=== PATIENT | female | born 1950 | race Caucasian/White ===

== ENCOUNTER 2020-06-24 12:38 | Outpatient (CLI) | payer MEDICARE, SELFPAY ==
--- NOTE | ~2020-06-24 | MM_ITS ---
EXAMINATION: MM screening [facility] BI w etta HISTORY: Screening TECHNIQUE: Craniocaudal and mediolateral oblique 3-D tomosynthesis images were obtained and synthetic 2-D images were generated. CAD analysis was submitted and interpreted. COMPARISON: Comparison to multiple prior studies sequentially, with oldest reviewed study dated 07/31. BREAST PARENCHYMAL COMPOSITION: There are scattered areas of fibroglandular density. FINDINGS: There is no evidence of suspicious mass, calcification, or architectural distortion to sugg est malignancy in either breast. There has been no suspicious interval change. IMPRESSION: 1. No mammographic evidence of malignancy. 2. Recommend routine screening mammography in one year. BI-RADS Category 1: Negative Reviewed, dictated and finalized at location D. 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
== END 2020-06-24 12:39 | disposition home or self-care (01) ==
LOC: ANHIMG 12:42
PROVIDERS: PCP Family Medicine; Visit Provider Obstetrics & Gynecology
DX: Z12.31 Encounter for screening mammogram for malignant neoplasm of breast (principal)
CPT/HCPCS: 77063; 77067

== ENCOUNTER → 2020-12-25 10:35 | Outpatient (CLI) | payer MEDICARE, SELFPAY ==
--- NOTE | ~2020-12-25 | XR_ITS ---
XR lumbar spine 2-3V 12/25/2020 10:55 Indication: Low back Procedure: 3 views lumbar spine Comparison: No prior studies for comparison. Findings: There is disc narrowing at all lumbar levels. There is grade 1 degenerative spondylolisthes is at L4-5. There is moderate lumbar facet hypertrophy at L4-5 and L5-S1. No fracture or traumatic ma lalignment. There is atherosclerosis. Sacral foramen are symmetric. Impression: 1: Moderate lumbar spondylosis. Reviewed, dictated and finalized at location B. Impression: 1: Moderate lumbar spondylosis.
== END ==
PROVIDERS: PCP Nurse Practitioner Family; Visit Provider Nurse Practitioner Family
DX: M47.896 Other spondylosis, lumbar region (principal)
CPT/HCPCS: 72100

== ENCOUNTER 2021-10-14 14:42 | Outpatient (CLI) | payer MEDICARE, SELFPAY ==
--- NOTE | ~2021-10-14 | MM_ITS ---
EXAMINATION: MM screening [facility] BI w etta HISTORY: Screening mammogram TECHNIQUE: Craniocaudal and mediolateral oblique 3-D tomosynthesis images were obtained and synthetic 2-D images were generated. CAD analysis was submitted and interpreted. COMPARISON: 06/24/2020, 06/03/2019, 04/16/2018 BREAST PARENCHYMAL COMPOSITION: The breasts are almost entirely fatty. FINDINGS: There is no suspicious mass, calcification, or architectural distortion to suggest malignan cy in either breast. There has been no suspicious interval change. IMPRESSION: 1. No mammographic evidence of malignancy. 2. Recommend routine screening mammography in one year. BI-RADS Category 1: Negative Reviewed, dictated and finalized at location A.
== END 2021-10-14 14:43 | disposition home or self-care (01) ==
LOC: ANHIMG 14:43
PROVIDERS: PCP Family Medicine; Visit Provider Obstetrics & Gynecology
DX: Z12.31 Encounter for screening mammogram for malignant neoplasm of breast (principal)
CPT/HCPCS: 77063; 77067

== ENCOUNTER → 2022-04-08 13:45 | Outpatient (CLI) | payer MEDICARE, SELFPAY ==
--- NOTE | ~2022-04-08 | XR_ITS ---
XR chest 2V DATE: 04/08/2022 14:20 INDICATION: Cough TECHNIQUE: 2 views COMPARISON: 10/09/2015 PA and lateral chest FINDINGS: Mild cardiomegaly. No pulmonary infiltrate or consolidation, pleural effusion or pulmonary vascular congestion or pneumothorax is detected. Diffuse osteopenia. Degenerative spurring of the thoracic spine. IMPRESSION: Cardiomegaly; no active pulmonary disease Reviewed, dictated and finalized at location B.
--- NOTE | ~2022-04-08 | XR_ITS ---
XR lumbar spine 2-3V DATE: 04/08/2022 14:20 INDICATION: Back pain TECHNIQUE: Standing AP, lateral and coned lateral lumbosacral views COMPARISON: 12/25/2020 lumbar spine FINDINGS: There is osteopenia. There is severe degenerative disc disease at L1-2, L2-3 and moderately prominent degenerative disc di sease at L3-4. There is degenerative change at the apophyseal joints with associated grade 1 anterolisthesis at L4-5 . The lumbar pedicles are intact. No fracture or bone destruction is evident. The sacroiliac joints are intact. Abdominal aortic calcification. Mild fusiform infrarenal abdominal aortic aneurysm is suggested. IMPRESSION: Osteopenia Multilevel degenerative disc disease, most prominent at L1-2 and L2-3 Degenerative change of the apophyseal joints with minimal grade 1 anterolisthesis at L4-5 Suggestion of mild fusiform infrarenal abdominal aortic aneurysm Reviewed, dictated and finalized at location B. IMPRESSION: Osteopenia Multilevel degenerative disc disease, most prominent at L1-2 and L2-3 Degenerative change of the apophyseal joints with minimal grade 1 anterolisthes is at L4-5 Suggestion of mild fusiform infrarenal abdominal aortic aneurysm
== END ==
PROVIDERS: PCP Family Medicine; Visit Provider Nurse Practitioner Family
DX: R05.9 Cough, unspecified (principal); M85.88 Other specified disorders of bone density and structure, other site; M51.36 Other intervertebral disc degeneration, lumbar region; I71.4 Abdominal aortic aneurysm, without rupture; I51.7 Cardiomegaly
CPT/HCPCS: 71046; 72100

== ENCOUNTER 2022-05-18 10:15 | Outpatient (CLI) | payer MEDICARE, SELFPAY ==
--- NOTE | ~2022-05-18 | US_ITS ---
EXAMINATION: US aorta DATE: 05/18/2022 10:57 INDICATION: Abdominal aortic aneurysm without rupture TECHNIQUE: Grayscale, color Doppler, and pulsed Doppler images of the aorta and common iliac arteries were obtained. COMPARISON: None. FINDINGS: The proximal aorta measures 1.9 cm. The mid aorta measures 1.7 cm. The distal aorta measures 3.1 cm. The right common iliac artery measures 1.0 cm. The left common iliac artery measures 1.0 cm. IMPRESSION: 1. Mildly ectatic distal abdominal aorta which measures up to 3.1 cm in maximal diameter. Reviewed, dictated and finalized at location B.
[2022-05-18 11:28] LABS: Anion Gap 13 mmol/L (8-16); Blood Urea Nitrogen 18 mg/dL (7-17); Carbon Dioxide 30 mmol/L (22-30); Chloride 99 mmol/L (98-107); Estimated Glomerular Filt Rate > 60; Glucose 170 mg/dL (65-110); Potassium 4.1 mmol/L (3.4-5.0); Sodium 142 mmol/L (137-145)
== END 2022-05-18 10:16 | disposition home or self-care (01) ==
PROVIDERS: PCP Family Medicine; Visit Provider Internal Medicine Cardiovascular Disease
DX: I71.43 Infrarenal abdominal aortic aneurysm, without rupture (principal); I10 Essential (primary) hypertension
CPT/HCPCS: 36415; 76775; 80048

== ENCOUNTER 2022-09-14 08:38 | Outpatient (CLI) | payer MEDICARE, SELFPAY ==
--- NOTE | ~2022-09-14 | CT_ITS ---
CT of the Abdomen and Pelvis: Indication: Abdominal pain Technique: 2.5 mm axial scans were obtained through the abdomen and pelvis following intravenous adm inistration of 100 cc of Omnipaque 350. Dose reduction technique was used on this scan by utilizing a utomated exposure control and iterative reconstruction technique. The dose-length product (DLP) was 1 369.95 mGy-cm. COMPARISON: 08/11/2013 Findings: Scans through the lung bases are unremarkable. The liver, spleen, pancreas, gallbladder, adrenals and kidneys are within normal limits. There is mil d aneurysmal dilatation of distal abdominal aorta to 3 cm in maximum diameter. There are atherosclero tic calcifications of the aorta. No lymphadenopathy. No bowel obstruction or bowel wall thickening. There is no evidence to suggest acute appendicitis. Fa t-containing umbilical hernia noted. Images through the pelvis were performed. Urinary bladder unremarkable. No adnexal mass evident. No a scites. Impression: Fat-containing umbilical hernia. Aneurysmal dilatation of the distal abdominal aorta to 3 cm. Reviewed, dictated and finalized at [facility]. 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 Aneurysmal dilatation of the distal abdominal aorta to 3 cm.
[2022-09-14 09:06] LABS: Estimated Glomerular Filt Rate 55
== END 2022-09-14 08:39 | disposition home or self-care (01) ==
PROVIDERS: PCP Family Medicine; Visit Provider Nurse Practitioner Family
DX: R10.9 Unspecified abdominal pain (principal); K42.9 Umbilical hernia without obstruction or gangrene
CPT/HCPCS: 74177; Q9967

== ENCOUNTER 2023-03-07 12:42 | Outpatient (CLI) | payer MEDICARE, SELFPAY ==
--- NOTE | ~2023-03-07 | XR_ITS ---
XR abdomen/kub 1V 03/07/2023 13:11 INDICATION: Right lower quadrant pain TECHNIQUE: KUB COMPARISON: 08/12/2013 FINDINGS: Bowel gas pattern is normal. Moderate colonic fecal loading. There is no evidence of free a ir, mass, organomegaly, ascites or obstruction. No abnormal calculi are seen. The bones appear inta ct. IMPRESSION: 1: No acute abdominal abnormality identified. Reviewed, dictated and finalized at location L.
[2023-03-07 14:27] LABS: Hematocrit 50.7 % (37.0-47.0); Hemoglobin 15.8 g/dL (12.0-15.0); Immature Platelet Fraction Pct 19.2 % (0.9-11.2); Mean Corpuscular HGB Conc 31.2 g/dl (32-36); Mean Corpuscular Hemoglobin 29.8 pg (26-34); Mean Corpuscular Volume 95.7 fl (80-100); Mean Platelet Volume 13.5 fl (7.4-10.4); Platelet Count Result 193 k/mm3 (150-375)
[2023-03-07 14:37] LABS: Alanine Aminotransferase 18 U/L (6-35); Albumin Level 4.6 g/dL (3.5-5.1); Alkaline Phosphatase 66 U/L (38-126); Anion Gap 6 mmol/L (8-16); Aspartate Amino Transferase 29 U/L (14-36); Bilirubin,Total 0.8 mg/dL (0.2-1.3); Blood Urea Nitrogen 19 mg/dL (7-17); Calcium 10.7 mg/dL (8.4-10.2); Carbon Dioxide 28 mmol/L (22-30); Chloride 102 mmol/L (98-107); Cholesterol 151 mg/dL (0-200); Estimated Glomerular Filt Rate > 60; Glucose 151 mg/dL (65-110); HDL Direct 47 mg/dL; Potassium 4.4 mmol/L (3.4-5.0); Sodium 136 mmol/L (137-145); Triglycerides 140 mg/dL (<150)
[2023-03-07 14:48] LABS: LDL Cholesterol Direct 77 mg/dL
[2023-03-07 18:01] LABS: Vitamin D 25 Hydroxy 58.2 ng/mL
== END 2023-03-07 12:43 | disposition home or self-care (01) ==
PROVIDERS: PCP Family Medicine; Visit Provider Nurse Practitioner Family
DX: R10.9 Unspecified abdominal pain (principal); R14.0 Abdominal distension (gaseous); Z87.19 Personal history of other diseases of the digestive system; E55.9 Vitamin D deficiency, unspecified; E66.01 Morbid (severe) obesity due to excess calories; I10 Essential (primary) hypertension; E78.5 Hyperlipidemia, unspecified
CPT/HCPCS: 36415; 74018; 80053; 80061; 82306; 84443; 85027; 85055

== ENCOUNTER 2023-03-13 01:31 | Day surgery (SDC) | payer MEDICARE, SELFPAY ==
[2023-02-15 14:18] VITALS: BMI 39.6
--- NOTE | 2023-03-06 15:43 | PC.NURSE ---
SPOKE WITH PT. DENIES ANY CHANGES IN HEALTH SINCE INTERVIEWED 02/15/2023. REVIEWED INSTRUCTIONS, DATE AND TIMES/
[2023-03-13 11:35] VITALS: BP 144/93; PULSE 86; RESP 20; TEMP 36.4; O2SAT 97
[2023-03-13] MEDS: LACTATED RINGERS 1,000 ML 150 ML IV CONT (11:51)
--- NOTE | 2023-03-13 12:00 | PM.HPGS ---
History of Present Illness History of Present Illness Consent: Risks, benefits, and alternatives have been discussed and questions answered. Patient agrees to proceed with procedure. Chief complaint: GERD,Abdominal pain Narrative: Tammy Lynn is a 73 year old female with intermittent abdominal pain and bloating, CT scan showed umbilical hernia and 3 cm Ao aneurysm. Last colonoscopy about 8 years ago Review of Systems Constitutional: Constitutional: Denies headache(s) and Denies weakness Eyes: Eyes: Denies blurry vision ENT: Reports Normal hearing present, Denies headache(s) and Denies neck pain Cardiovascular: Cardiovascular: Denies chest pain and Denies dyspnea Respiratory: Respiratory: Denies dyspnea Gastrointestinal: Gastrointestinal: Reports no additional gastrointestinal complaints Genitourinary: Genitourinary: Denies dysuria Musculoskeletal: Musculoskeletal: Denies neck pain Integumentary/Breasts: Skin/Breast: Denies dry skin Neurologic: Reports Normal hearing present, Denies headache(s) and Denies weakness Psychiatric: Psychiatric: Denies anxiety Endocrine: Endocrine: Denies change in body appearance Hematologic/Lymphatic: Hematologic/Lymphatic: Denies easy bleeding Allergic/Immunologic: Allergic/Immunologic: Denies urticaria PMFSH Past Medical History Medical History Abdominal bloating Abdominal pain BMI 40.0-44.9, adult Hypertension Melanoma of nose Morbidly obese PVC (premature ventricular contraction) Skin cancer of nose Surgical History Surgical History History of total left knee replacement (~11/13/18) Status post medial meniscectomy of left knee (~08/01/17) Family History Family History Father Throat cancer Skin cancer Mother Ovarian cancer Stomach cancer Sibling Acute myocardial infarction Diabetes mellitus Dementia Stomach cancer Other Family history of arthritis Family history of coronary artery disease Family history of malignant neoplasm Hypertension Social History Social History Smoking status: Never smoker Second hand tobacco smoke exposure: No Alcohol intake: current Substance use: current Substance use type: does not use Lack of Transportation: No Lack of Food: Never True Current Housing: I Have Housing Concerned About Future Housing: No Difficulty Paying Gas/Electric Bills: No Difficulty Paying for Meds: No Currently Unemployed: No Education: High School Diploma/GED Difficulty w/ Childcare or Family Care: No Living arrangements: with family Additional living arrangements comments: has passed Occupation/Education: retired 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 Gender identity (if verbalized by the patient): Female Sexual Orientation (if Verbalized by the Patient): Straight or Heterosexual Spiritual care concerns: No Agree to blood products: Yes Meds Home Medications and Allergies Home Medications Medication Instructions Recorded Confirmed Type diltiazem HCl 240 mg 240 mg PO DAILY 06/20/19 03/13/23 History capsule,extended release 24 hr (Cartia XT) celecoxib 100 mg capsule (Celebrex) 100 mg PO BID #60 caps 04/13/22 03/06/23 Rx ezetimibe 10 mg tablet (Zetia) 10 mg PO DAILY #90 tabs 04/13/22 03/06/23 Rx blood-glucose meter #1 ea 07/14/22 03/06/23 Rx lancets #100 ea 07/14/22 03/06/23 Rx hydrochlorothiazide 25 mg tablet 25 mg PO DAILY #90 tabs 10/23/22 03/06/23 Rx losartan 100 mg tablet 100 mg PO DAILY 02/15/23 03/06/23 History nebivolol 20 mg tablet (Bystolic) 20 mg PO DAILY PRN PALPITATIONS 02/15/23 03/06/23 History rosuvastatin 10 mg tablet 10 mg PO DAILY
--- NOTE | 2023-03-13 12:03 | WPDANESEPPF ---
Anes - Initial Pre Proc Eval Procedure: Operation Date: 03/13/23 13:00 Proposed Procedures p Esophagogastroduodenoscopy & Colonoscopy - Barry Mims MD Date/Time: 03/13/23 12:03 Surgeon: Barry Mims MD Pre Op Diagnosis: GERD,Abdominal pain Patient Data Age: 73 Gender: F Height: 1.59 m Weight: 103.4 kg Last Vital Signs Temp 97.5 F L 03/13/23 11:35 Pulse 86 03/13/23 11:35 Resp 20 03/13/23 11:35 BP 144/93 H 03/13/23 11:35 Pulse Ox 97 03/13/23 11:35 O2 Del Method Room Air 03/13/23 11:35 Allergies Allergy/AdvReac Type Severity Reaction Status Date / Time No Known Allergies Allergy Verified 03/13/23 11:34 Home Medications Medication Instructions Recorded Confirmed Type diltiazem HCl 240 mg 240 mg PO DAILY 06/20/19 03/13/23 History capsule,extended release 24 hr (Cartia XT) celecoxib 100 mg capsule (Celebrex) 100 mg PO BID #60 caps 04/13/22 03/06/23 Rx ezetimibe 10 mg tablet (Zetia) 10 mg PO DAILY #90 tabs 04/13/22 03/06/23 Rx blood-glucose meter #1 ea 07/14/22 03/06/23 Rx lancets #100 ea 07/14/22 03/06/23 Rx hydrochlorothiazide 25 mg tablet 25 mg PO DAILY #90 tabs 10/23/22 03/06/23 Rx losartan 100 mg tablet 100 mg PO DAILY 02/15/23 03/06/23 History nebivolol 20 mg tablet (Bystolic) 20 mg PO DAILY PRN PALPITATIONS 02/15/23 03/06/23 History rosuvastatin 10 mg tablet 10 mg PO DAILY 02/15/23 03/06/23 History spironolactone 25 mg tablet 25 mg PO DAILY 02/15/23 03/06/23 History citalopram 40 mg tablet See Rx Instructions .Route 02/18/23 03/06/23 Rx .COMPLEX #90 tabs albuterol sulfate 90 mcg/actuation 2 inh inhalation Q4H PRN shortness 02/27/23 03/06/23 Rx aerosol inhaler of breath or wheezing #8.5 grams blood sugar diagnostic (Blood #120 ea 02/27/23 03/06/23 Rx Glucose Test strips) omeprazole 40 mg capsule,delayed 40 mg PO DAILY #30 caps 02/27/23 03/06/23 Rx release Patient hx anesthesia problems: none Family hx anesthesia problems: none Results Review: All pre-operative results and documents have been reviewed as part of the pre-operative evaluation. 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) Status post medial meniscectomy of left knee (~08/01/17) Family History Family History Father Throat cancer Skin cancer Mother Ovarian cancer Stomach cancer Sibling Acute myocardial infarction Diabetes mellitus Dementia Stomach cancer Other Family history of arthritis Family history of coronary artery disease Family history of malignant neoplasm Hypertension Social History Social History Smoking status: Never smoker Second hand tobacco smoke exposure: No Alcohol intake: current Substance use: current Substance use type: does not use Lack of Transportation: No Lack of Food: Never True Current Housing: I Have Housing Concerned About Future Housing: No Difficulty Paying Gas/Electric Bills: No Difficulty Paying for Meds: No Currently Unemployed: No Education: High School Diploma/GED Difficulty w/ Childcare or Family Care: No Living arrangements: with family Additional living arrangements comments: has passed Occupation/Education: retired 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
--- NOTE | 2023-03-13 12:34 | SUR.OPER ---
EGD START 1214, END 1217 COLONOSCOPY START 1221, END 1234
[2023-03-13 12:38] VITALS: BP 124/68; PULSE 54; RESP 22; O2SAT 92
[2023-03-13 12:48] VITALS: BP 124/67; PULSE 56; RESP 20; O2SAT 95
[2023-03-13 12:58] VITALS: BP 126/62; PULSE 54; RESP 20; O2SAT 98
== END 2023-03-13 13:11 | disposition home or self-care (01) ==
PROVIDERS: PCP Family Medicine; Visit Provider Internal Medicine Gastroenterology
PROC: 0DJ08ZZ Inspection of Upper Intestinal Tract, Via Natural or Artificial Opening Endoscopic (ICD-10-PCS; CPT 43235; principal; 2023-03-13 13:00)
DX: R10.30 Lower abdominal pain, unspecified (principal); K21.9 Gastro-esophageal reflux disease without esophagitis; R14.0 Abdominal distension (gaseous); K57.30 Diverticulosis of large intestine without perforation or abscess without bleeding; K64.8 Other hemorrhoids; I10 Essential (primary) hypertension; E66.01 Morbid (severe) obesity due to excess calories; Z68.41 Body mass index [BMI] 40.0-44.9, adult; Z96.652 Presence of left artificial knee joint
CPT/HCPCS: 43239; 45378; 88305; J2704; J7120

== ENCOUNTER → 2023-07-19 14:00 | Outpatient (CLI) | payer MEDICARE, SELFPAY ==
--- NOTE | ~2023-07-19 | MM_ITS ---
EXAMINATION: MM screening [facility] BI w etta HISTORY: Screening mammogram TECHNIQUE: Craniocaudal and mediolateral oblique 3-D tomosynthesis images were obtained and synthetic 2-D images were generated. CAD analysis was submitted and interpreted. COMPARISON: 10/14/2021, 06/24/2020, 06/03/2019 BREAST PARENCHYMAL COMPOSITION: The breasts are almost entirely fatty. FINDINGS: No suspicious mass, calcification, or architectural distortion are identified in either osman ast to suggest malignancy. There has been no suspicious interval change. IMPRESSION: 1. No mammographic evidence of malignancy. 2. Recommend routine screening mammography in one year. 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
== END ==
PROVIDERS: PCP Obstetrics & Gynecology; Referring Provider Family Medicine; Visit Provider Nurse Practitioner Family
DX: Z12.31 Encounter for screening mammogram for malignant neoplasm of breast (principal)
CPT/HCPCS: 77063; 77067

== ENCOUNTER 2023-11-23 11:13 | Outpatient (CLI) | payer MEDICARE, SELFPAY ==
--- NOTE | ~2023-11-23 | US_ITS ---
Abdominal Sonogram: Real-time sonographic imaging of the abdomen was performed. Clinical History: Right upper quadrant pain Findings: The liver appears echogenic, with no evidence of mass lesion or bile duct dilatation. Main portal vein demonstrates normal direction of flow. The spleen is normal in size without evidence of focal lesion. The gallbladder is well distended, and appears normal with no evidence of gallstone or wall thickening. The common bile duct measures 4 mm. The visualized pancreas and IVC are unremarkab le. Distal abdominal aorta measures up to 3.3 cm in diameter. The right kidney measures 9.7 cm in le ngth and the left kidney measures 9.7 cm. There is no hydronephrosis or renal calculus. Left renal c ysts are noted. Impression: Diffuse fatty infiltration of liver noted. Mild distal abdominal aneurysm measuring 3.3 cm in diameter. Reviewed, dictated and finalized at [facility]. Impression: Diffuse fatty infiltration of liver noted. Mild distal abdominal aneurysm measuring 3.3 cm in diameter.
== END 2023-11-23 11:14 ==
LOC: MICIMG 11:13
PROVIDERS: PCP Nurse Practitioner Adult Health; Visit Provider Nurse Practitioner Adult Health
DX: R10.11 Right upper quadrant pain (principal); K76.0 Fatty (change of) liver, not elsewhere classified
CPT/HCPCS: 76700

== ENCOUNTER 2024-01-12 08:27 | Outpatient (CLI) | payer MEDICARE, SELFPAY ==
--- NOTE | ~2024-01-12 | CT_ITS ---
EXAMINATION: CT abdomen pelvis wo con DATE: 01/12/2024 08:42 INDICATION: Right upper quadrant abdominal pain TECHNIQUE: Computed tomography (CT) of the abdomen and pelvis was performed without intravenous contr ast. Automated exposure control and iterative reconstruction technique were employed. The dose-length product was 1092.19 mGy-cm. COMPARISON: CT dated 09/14/2022 FINDINGS: Lung bases are clear. Heart size is normal. No pericardial or pleural effusion. Calcified splenic nod ules consistent with old granulomatous disease. Liver, gallbladder, pancreas, bilateral adrenal gland s and right kidney are normal. There are a couple exophytic right renal cysts, the largest measuring 4.9 cm. 3.5 x 3.3 cm fusiform ectasia of the infrarenal aorta. Moderate-sized fat-containing umbilica l hernia. There are few sigmoid diverticula without adjacent inflammatory stranding to suggest divert iculitis. Small bowel and appendix are normal. Bladder is normal. Fibroid uterus. Moderate to severe lumbar and lower thoracic spondylosis. IMPRESSION: 1. No acute intra-abdominal/pelvic process. 2. Moderate-sized fat-containing umbilical hernia. 3. Fibroid uterus. 4. 3.5 cm fusiform ectasia of the infrarenal aorta. Reviewed, dictated and finalized at location B.
== END 2024-01-12 08:28 ==
LOC: GOSHIMG 08:28
PROVIDERS: PCP Family Medicine; Visit Provider Nurse Practitioner Adult Health
DX: K42.9 Umbilical hernia without obstruction or gangrene (principal); D25.9 Leiomyoma of uterus, unspecified; I77.819 Aortic ectasia, unspecified site
CPT/HCPCS: 74176

== ENCOUNTER 2024-01-12 08:42 | Outpatient (CLI) | payer MEDICARE, SELFPAY ==
[2024-01-12 12:46] LABS: Basophils Absolute Auto 0.1 K/mm3 (0.0-0.1); Basophils Percent Auto 0.7 % (0.2-1.2); Eosinophils Absolute Auto 0.2 K/mm3 (0-0.3); Eosinophils Percent Auto 1.7 % (0-4.4); Hematocrit 51.5 % (37.0-47.0); Hemoglobin 15.9 g/dL (12.0-15.0); Immature Granulocyte Absolute 0.05 K/mm3 (0.00-0.031); Immature Granulocyte Percent A 0.4 % (0-0.5); Lymphocytes Absolute Auto 1.56 K/mm3 (0.9-3.2); Lymphocytes Percent Auto 12.8 % (18.3-44.2); Mean Corpuscular HGB Conc 30.9 g/dl (32-36); Mean Corpuscular Hemoglobin 29.4 pg (26-34); Mean Corpuscular Volume 95.4 fl (80-100); Mean Platelet Volume 13.5 fl (7.4-10.4); Monocytes Percent Auto 7.9 % (2.6-8.5); Neutrophils Absolute Auto 9.3 K/mm3 (1.3-6.7); Neutrophils Percent Auto 76.5 % (45.5-73.1); Platelet Count Result 207 k/mm3 (150-375); Red Cell Distribution Width 14.2 % (11.5-14.5); White Blood Count 12.2 K/mm3 (4.5-10.0)
[2024-01-12 12:58] LABS: Alanine Aminotransferase 16 U/L (6-35); Albumin Level 4.8 g/dL (3.5-5.1); Alkaline Phosphatase 88 U/L (38-126); Anion Gap 8 mmol/L (4-12); Aspartate Amino Transferase 67 U/L (14-36); Bilirubin,Total 0.7 mg/dL (0.2-1.3); Blood Urea Nitrogen 32 mg/dL (7-17); Calcium 10.9 mg/dL (8.4-10.2); Carbon Dioxide 27 mmol/L (22-30); Chloride 107 mmol/L (98-107); Cholesterol 171 mg/dL (0-200); Estimated Glomerular Filt Rate 49; Glucose 127 mg/dL (65-110); HDL Direct 46 mg/dL; Sodium 142 mmol/L (137-145); Triglycerides 99 mg/dL (<150)
[2024-01-12 13:09] LABS: LDL Cholesterol Direct 103 mg/dL
[2024-01-12 13:12] LABS: Free T4 Free Thyroxine 1.21 ng/mL (0.78-2.19)
[2024-01-12 13:23] LABS: Thyroid Stimulating Hormone 0.745 uIU/mL (0.465-4.680)
== END 2024-01-12 08:43 | disposition home or self-care (01) ==
LOC: ANHGOSHLAB 08:44
PROVIDERS: PCP Family Medicine; Visit Provider Nurse Practitioner Adult Health
DX: E83.52 Hypercalcemia (principal); K76.0 Fatty (change of) liver, not elsewhere classified; R10.11 Right upper quadrant pain; R71.8 Other abnormality of red blood cells; R79.89 Other specified abnormal findings of blood chemistry; R89.9 Unspecified abnormal finding in specimens from other organs, systems and tissues; F32.0 Major depressive disorder, single episode, mild; Z68.41 Body mass index [BMI] 40.0-44.9, adult; E66.01 Morbid (severe) obesity due to excess calories
CPT/HCPCS: 36415; 80053; 80061; 84439; 84443; 85025; 85055

== ENCOUNTER 2024-01-26 12:36 | Outpatient (CLI) | payer MEDICARE, SELFPAY ==
[2024-01-26 14:24] LABS: Basophils Absolute Auto 0.1 K/mm3 (0.0-0.1); Basophils Percent Auto 0.6 % (0.2-1.2); Eosinophils Absolute Auto 0.2 K/mm3 (0-0.3); Eosinophils Percent Auto 2.8 % (0-4.4); Hematocrit 53.2 % (37.0-47.0); Hemoglobin 16.3 g/dL (12.0-15.0); Immature Granulocyte Absolute 0.02 K/mm3 (0.00-0.031); Immature Granulocyte Percent A 0.3 % (0-0.5); Immature Platelet Fraction Pct 17.6 % (0.9-11.2); Lymphocytes Absolute Auto 1.72 K/mm3 (0.9-3.2); Lymphocytes Percent Auto 22.1 % (18.3-44.2); Mean Corpuscular HGB Conc 30.6 g/dl (32-36); Mean Corpuscular Hemoglobin 29.2 pg (26-34); Mean Corpuscular Volume 95.2 fl (80-100); Mean Platelet Volume 13.2 fl (7.4-10.4); Monocytes Absolute Auto 0.6 K/mm3 (0.1-0.6); Monocytes Percent Auto 7.8 % (2.6-8.5); Neutrophils Absolute Auto 5.2 K/mm3 (1.3-6.7); Neutrophils Percent Auto 66.4 % (45.5-73.1); Platelet Count Result 191 k/mm3 (150-375); Red Blood Count 5.59 M/mm3 (4.2-5.4); Red Cell Distribution Width 13.9 % (11.5-14.5); White Blood Count 7.8 K/mm3 (4.5-10.0)
[2024-01-26 14:51] LABS: Alanine Aminotransferase 16 U/L (6-35); Albumin Level 4.5 g/dL (3.5-5.1); Alkaline Phosphatase 68 U/L (38-126); Anion Gap 8 mmol/L (4-12); Aspartate Amino Transferase 56 U/L (14-36); Bilirubin,Total 0.8 mg/dL (0.2-1.3); Blood Urea Nitrogen 17 mg/dL (7-17); Calcium 10.3 mg/dL (8.4-10.2); Carbon Dioxide 30 mmol/L (22-30); Chloride 103 mmol/L (98-107); Estimated Glomerular Filt Rate > 60; Glucose 139 mg/dL (65-110); Potassium 4.9 mmol/L (3.4-5.0); Sodium 141 mmol/L (137-145)
== END 2024-01-26 12:37 | disposition home or self-care (01) ==
PROVIDERS: PCP Family Medicine; Visit Provider Nurse Practitioner Adult Health
DX: F32.0 Major depressive disorder, single episode, mild (principal); K76.0 Fatty (change of) liver, not elsewhere classified; D58.2 Other hemoglobinopathies; N17.9 Acute kidney failure, unspecified
CPT/HCPCS: 36415; 80053; 85025; 85055

== ENCOUNTER 2024-02-14 10:53 | Outpatient (CLI) | payer MEDICARE, SELFPAY ==
[2024-02-14 11:08] LABS: Basophils Absolute Auto 0.1 K/mm3 (0.0-0.1); Basophils Percent Auto 0.5 % (0.2-1.2); Eosinophils Absolute Auto 0.2 K/mm3 (0-0.3); Eosinophils Percent Auto 2.6 % (0-4.4); Hematocrit 50.1 % (37.0-47.0); Hemoglobin 15.8 g/dL (12.0-15.0); Immature Granulocyte Absolute 0.03 K/mm3 (0.00-0.031); Immature Granulocyte Percent A 0.3 % (0-0.5); Lymphocytes Absolute Auto 1.54 K/mm3 (0.9-3.2); Lymphocytes Percent Auto 16.4 % (18.3-44.2); Mean Corpuscular HGB Conc 31.5 g/dl (32-36); Mean Corpuscular Hemoglobin 29.4 pg (26-34); Mean Corpuscular Volume 93.1 fl (80-100); Mean Platelet Volume 12.9 fl (7.4-10.4); Monocytes Absolute Auto 0.7 K/mm3 (0.1-0.6); Monocytes Percent Auto 7.6 % (2.6-8.5); Neutrophils Absolute Auto 6.8 K/mm3 (1.3-6.7); Neutrophils Percent Auto 72.6 % (45.5-73.1); Platelet Count Result 185 k/mm3 (150-375); Red Blood Count 5.38 M/mm3 (4.2-5.4); White Blood Count 9.4 K/mm3 (4.5-10.0)
[2024-02-14 11:50] LABS: Alanine Aminotransferase 15 U/L (6-35); Albumin Level 4.5 g/dL (3.5-5.1); Alkaline Phosphatase 82 U/L (38-126); Anion Gap 9 mmol/L (4-12); Aspartate Amino Transferase 33 U/L (14-36); Bilirubin,Total 0.7 mg/dL (0.2-1.3); Blood Urea Nitrogen 15 mg/dL (7-17); Calcium 10.2 mg/dL (8.4-10.2); Carbon Dioxide 29 mmol/L (22-30); Chloride 101 mmol/L (98-107); Estimated Glomerular Filt Rate > 60; Glucose 149 mg/dL (65-110); Potassium 4.2 mmol/L (3.4-5.0); Sodium 139 mmol/L (137-145)
[2024-02-19 10:39] LABS: Erythropoietin (EPO) 8.9 mIU/mL (2.6-18.5)
== END 2024-02-14 10:54 | disposition home or self-care (01) ==
LOC: ANHLAB 10:55
PROVIDERS: Nurse Practitioner Family; PCP Family Medicine; Visit Provider Internal Medicine Hematology & Oncology
DX: D75.1 Secondary polycythemia (principal)
CPT/HCPCS: 36415; 80053; 82668; 85025

== ENCOUNTER 2024-03-19 14:26 | Emergency (ER) | payer MEDICARE, SELFPAY ==
[2024-03-19 14:32] VITALS: BP 156/91; PULSE 88; RESP 16; TEMP 36.4; O2SAT 98
--- NOTE | 2024-03-19 15:16 | ED.URI ---
HPI - URI/Sore Throat General Chief Complaint: Upper Respiratory Infection Stated Complaint: URI Time Seen by Provider: 03/19/24 14:32 History of Present Illness HPI Narrative: patient was on a cruise and now has 2 days of congestion, slight cough. Related Data Home Medications Medication Instructions Recorded Confirmed diltiazem HCl 240 mg 240 mg PO DAILY 06/20/19 01/31/24 capsule,extended release 24 hr (Cartia XT) losartan 100 mg tablet 100 mg PO DAILY 02/15/23 01/31/24 rosuvastatin 10 mg tablet 10 mg PO DAILY 02/15/23 01/31/24 spironolactone 25 mg tablet 25 mg PO DAILY PRN 07/25/23 01/31/24 Allergies Allergy/AdvReac Type Severity Reaction Status Date / Time tirzepatide [From Didi] AdvReac Mild Nausea Verified 03/19/24 08:39 Review of Systems Review of Systems: All systems reviewed & are unremarkable except as noted in HPI and below PMFSH Past Medical History Medical History Abdominal bloating Abdominal pain KEON (acute kidney injury) Anxiety BMI 40.0-44.9, adult Elevated LFTs Fatty liver disease, nonalcoholic Hypertension Major depressive disorder Melanoma of nose Morbidly obese Obstructive sleep apnea Polycythemia PVC (premature ventricular contraction) Right upper quadrant abdominal pain Skin cancer of nose Surgical History Surgical History History of total left knee replacement (~11/13/18) Status post medial meniscectomy of left knee (~08/01/17) Family History Family History Father Throat cancer Skin cancer Mother Ovarian cancer Stomach cancer Sibling Acute myocardial infarction Diabetes mellitus Dementia Stomach cancer Other Family history of arthritis Family history of coronary artery disease Family history of malignant neoplasm Hypertension Social History Social History Smoking status: Never smoker Second hand tobacco smoke exposure: No Alcohol intake: current Substance use: current Substance use type: does not use Lack of Transportation: No Lack of Food: Never True Current Housing: I Have Housing Concerned About Future Housing: No Difficulty Paying Gas/Electric Bills: No Difficulty Paying for Meds: No Currently Unemployed: No Education: High School Diploma/GED Difficulty w/ Childcare or Family Care: No Living arrangements: with family Additional living arrangements comments: has passed Occupation/Education: retired 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 EYES: EOMI, conjunctiva normal ENT: Hearing grossly intact LUNGS: Nonlabored breathing. clear to auscultation bilaterally HEART: [Regular rate and rhythm] ABD: [Soft], [nontender to palpation] EXT: Normal range of motion SKIN: [No rashes or lesions.] NEURO: [Alert and oriented x 3. No gross focal sensory or strength deficits.] PSYCH: Normal affect Course Vital Signs Vital signs: Vital Signs Temperature 97.6 F 03/19/24 14:32 Pulse Rate 88 03/19/24 14:32 Respiratory Rate 16 03/19/24 14:32 Blood Pressure 156/91 H 03/19/24 14:32 Pulse Oximetry 98 03/19/24 14:32 Oxygen Delivery Room Air 03/19/24 14:32 Temperature 97.6 F 03/19/24 14:32 Pulse Rate 88 03/19/24 14:32 Respiratory Rate 16 03/19/24 14:32 Blood Pressure 156/91 H
[2024-03-19 15:47] LABS: Influenza A QL RT-PCR Negative (Negative); Influenza B QL RT-PCR Negative (Negative); RSV RNA, RT-PCR Negative (Negative); SARS-CoV-2 RNA PCR Positive (Negative)
== END 2024-03-19 16:36 | disposition home or self-care (01) ==
PROVIDERS: Emergency Provider Emergency Medicine; PCP Family Medicine
DX: U07.1 COVID-19 (principal); J32.9 Chronic sinusitis, unspecified; I10 Essential (primary) hypertension; E66.01 Morbid (severe) obesity due to excess calories; Z68.41 Body mass index [BMI] 40.0-44.9, adult; K76.0 Fatty (change of) liver, not elsewhere classified; G47.33 Obstructive sleep apnea (adult) (pediatric); D75.1 Secondary polycythemia; Z96.652 Presence of left artificial knee joint; Z85.820 Personal history of malignant melanoma of skin
CPT/HCPCS: 87637; 99283

== ENCOUNTER 2024-05-15 09:33 | Outpatient (CLI) | payer MEDICARE, SELFPAY ==
--- NOTE | 2024-06-06 19:09 | P.SLEEP_ITS ---
Sleep Study Date of Study: 05/15/24 Ordering Provider: Nelli Timmons MD Interpreting Physician: Nelli Timmons MD Sleep Study Type: CPAP Titration Height: 1.57 m Weight: 103.419 kg Body Mass Index: 41.7 Neck Circumference (inches): 18 [place]: 6 Reason for Sleep Study Known obstructive sleep apnea * 04/01/2029- CPAP titration with optimal pressure 14 cm Sleep History Tammy Lynn is a 74-year-old woman with obstructive sleep apnea initially diagnosed 15-20 years ago. She is being re-tested for new equipment. her current machine is 5 years old. She is compliant using her current CPAP. She has medical comorbidities including hypertension, is followed by Cardiology for hypertension and PVCs. The patient did not complete a sleep questionnaire so the history is obtained from my office note. She has decreased memory, mood and concentration. She has anxiety and depression, and her medications are managed by her primary care doctor. She recently started diabetes medicine. She reports a 50 lb weight gain the last year. She has nasal allergies and sinus problems, wakes up coughing, blows nose and sneezes; gets better after 50 blows. Normal bedtime is 2:00 a.m., waking up at 9:00 a.m. feeling tired, never refreshed. She sleeps all night. She does not wake for nocturia. She does have urgency when she urinates but this does not occur during the night. She does not often have dreams. She does not have any uncomfortable feelings in her legs before sleep nor does she kick during the night. While using her current CPAP 17 cm, she does not snore however she lives alone. She is very compliant with use. She does not have nightmares. She usually wakes up with a dry mouth however she does not require water by the bed. She naps 4 days out of the week, different times of the day sometimes between 3 and 4:00 p.m.. A nap may last several hours. She always uses CPAP with her naps. She never sleeps without it. Habits: Tobacco: never smoker Caffeine: 1 large cup of tea, 18 oz, per day Alcohol: PMFSH Past Medical History Medical History Abdominal bloating Abdominal pain KEON (acute kidney injury) Anxiety BMI 40.0-44.9, adult Elevated LFTs Fatty liver disease, nonalcoholic Hypertension Major depressive disorder Melanoma of nose Morbidly obese Obstructive sleep apnea Polycythemia PVC (premature ventricular contraction) Right upper quadrant abdominal pain Skin cancer of nose Surgical History Surgical History History of total left knee replacement (~11/13/18) Status post medial meniscectomy of left knee (~08/01/17) Family History Family History Father Throat cancer Skin cancer Mother Ovarian cancer Stomach cancer Sibling Acute myocardial infarction Diabetes mellitus Dementia Stomach cancer Other Family history of arthritis Family history of coronary artery disease Family history of malignant neoplasm Hypertension Social History Social History Smoking status: Never smoker Second hand tobacco smoke exposure: No Alcohol intake: current Substance use: current Substance use type: does not use Lack of Transportation: No Lack of Food: Never True Current Housing: I Have Housing Concerned About Future Housing: No Difficulty Paying Gas/Electric Bills: No Difficulty Paying for Meds: No Currently Unemployed: No Education: High School Diploma/GED Difficulty w/ Childcare or Family Care: No Living arrangements: with family Additional living arrangements comments: has passed Occupation/Education: retired 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 Gender identity (if verbalized by the patient): Female Sexual Orientation (if Verbalized by the Patient): Straight or Heterosexual Spiritual care concerns: No Agree to blood products: Yes Medications Home Medications Medication Instructions Recorded Confirmed Type diltiazem HCl 240 mg 240 mg PO DAILY 06/20/19 05/29/24 History capsule,extended release 24 hr (Cartia XT) lancets #100 ea 07/14/22 05/29/24 Rx losartan 100 mg tablet 100 mg PO DAILY 02/15/23 05/29/24 History rosuvastatin 10 mg tablet 10 mg PO DAILY 02/15/23 05/29/24 History ezetimibe 10 mg tablet (Zetia) 10 mg PO DAILY #90 tabs 04/13/23 05/29/24 Rx ondansetron HCl 4 mg tablet 4 mg PO Q8H PRN nausea and 05/30/23 05/29/24 Rx vomiting #20 tabs albuterol sulfate 90 mcg/actuation 2 inh inhalation Q4H PRN shortness 06/09/23 05/29/24 Rx aerosol inhaler of breath or wheezing #8.5 grams spironolactone 25 mg tablet 25 mg PO DAILY PRN 07/25/23 05/29/24 History omeprazole 40 mg capsule,delayed 40 mg PO DAILY #30 caps 09/24/23 05/29/24 Rx release blood-glucose meter #1 ea 11/29/23 05/29/24 Rx blood sugar diagnostic (OneTouch #100 strips 12/22/23 05/29/24 Rx Ultra Test strips) buspirone 15 mg tablet 15 mg PO BID #60 tabs 01/03/24 05/29/24 Rx duloxetine 60 mg capsule,delayed 60 mg PO DAILY #90 caps 03/19/24 05/29/24 Rx release (Cymbalta) fluticasone propionate 50 1 spray intranasal DAILY #16 grams 03/19/24 05/29/24 Rx mcg/actuation nasal spray,suspension (Allergy Relief (fluticasone)) tizanidine 4 mg tablet 4 mg PO QHS PRN muscle spasticity 03/26/24 05/29/24 Rx #20 tabs dapagliflozin propanediol 10 mg 10 mg PO DAILY #90 tabs 06/04/24 Rx tablet (Farxiga) Sleep Procedure A full CPAP polysomnogram using the [employer] multi-channel system recorded the standard physiologic parameters including EEG, EOG, submentalis EMG, anterior tibialis EMG, EKG, body position, nasal and oral airflow using nasal pressure sensor and thermistor. Respiratory parameters of chest and abdominal movements were recorded with Respiratory Inductance Plethysmography belts. Oxygen saturation was recorded by pulse oximetry. Video monitoring was also performed. Sleep stages, periodic limb movements, and EEG arousals were scored in 30 second epochs according to the criteria of the AASM Scoring Manual. The Apnea-Hypopnea Index was calculated using CMS guidelines for definition of hypopnea while scoring respiratory events. She self-administered Ambien 5 mg at the beginning of the study. The patient was started on CPAP using A small ResMed AirTouch F20 fullface mask, initial pressure was 10 cm, started higher than normal because the patient is already on CPAP at home. During the study pressure was dropped to 5 cm inadvertently before this was noticed. She was increased to the next pressure appropriate pressure, and completed the titration at CPAP 15 cm. At this pressure the patient spent 79 minutes in bed, 18.5 minutes awake, 57.5 minutes in non-REM and 3 room minutes in REM. The sleep efficiency was 76.6%. The residual apnea-hypopnea index was 0 and the lowest saturation was 89%. She had supine REM at this setting. Sleep Architecture The total recording time was 426.3 minutes. The total sleep time was 366.5 minutes. Sleep latency was 5.4 minutes. REM latency was 320.0 minutes. Sleep efficiency was 86.0%. The patient had 27 awakenings for an awakening index of 4.4. Wake after Sleep Onset time was 54.0 minutes. The patient spent 36.5 minutes, 10.0% of total sleep time in Stage N1. The patient spent 236.0 minutes, 64.4% in Stage N2. The patient spent 70.5 minutes, 19.2% in Stage N3. The patient spent 23.5 minutes, 6.4% in Stage REM. Respiratory Analysis The patient had 10 hypopneas, no obstructive apneas, no mixed apneas, and 1 central apnea for an overall Apnea Hypopnea Index of 1.8 events per hour. The REM Apnea Hypopnea Index was 0. The NREM Apnea Hypopnea Index was 1.9. The patient had a Central Apnea Hypopnea Index of 0.2. There was 1 Respiratory Effort Related Arousals resulting in a RERA index of 0.2 events per hour. The Respiratory Disturbance Index is 2.0 events per hour. There was no evidence of [place] Respirations. Arousals There were 238 total arousals for an arousal index of 39.0. There were 15 spontaneous arousals for an index of 2.5. There were 5 arousals due to respiratory events for an index of 0.8. There were 208 arousals due to periodic limb movements for an index of 34.1. There were 10 arousals due to isolated limb movements for an index of 1.6. Periodic Limb Movements The patient had 12 isolated limb movements with an index of 2.0. The patient had 618 periodic limb movements with index of 101.2. Patient had a total of 630 limb movements with a total limb movement index of 103.1. Oximetry Data The patient had an average oxygen saturation of 89.5% in sleep with a minimum oxygen saturation of 86.0% and a maximum oxygen saturation of 98.0%. The patient had 16 oxygen desaturations that were 4% or greater resulting in an Oxygen Desaturation Index of 2.6. The patient spent 85.1 minutes, 20% of total sleep time with an oxygen saturation below 88%. Snoring Profile Snoring was mild to moderate, eliminated at the optimal pressure. Cardiac Profile The EKG showed normal sinus rhythm. The patient had an average pulse rate of 69 bpm with a minimum pulse rate of 58 bpm and a maximum pulse rate of 89 bpm. Rare PVC. No arhythmia. EEG Profile EEG was unremarkable, no evidence of seizures. Assessment and Plan Assessment and Plan (1) Obstructive sleep apnea: Code(s): G47.33 - Obstructive sleep apnea (adult) (pediatric) Status: Acute Assessment and Plan: This full night CPAP titration on 05/15/2024 shows an optimal pressure of CPAP 15 cm using a small ResMed AirTouch F20 fullface mask with heated humidity. The patient had supine REM at this setting, the residual apnea-hypopnea index of 0 and a minimum saturation of 89%. The patient should be prescribed this ResMed equipment as well as tubing, filters and reservoir. This should be used with all episodes of sleep. Compliance should be reviewed within 31-90 days of starting therapy for usage greater than 4 hours per night greater than 70% of the nights. The patient should be asked about symptoms such as excessive daytime sleepiness, quality of sleep, decreased nocturia, increased mental functioning such as memory, mood, and concentration. BMI is 41. Weight management is advised. Clinical data suggests that weight loss of 10% can reduce the severity of respiratory events and snoring and improve AHI by as much as 25%. (2) PLMD (periodic limb movement disorder): Code(s): G47.61 - Periodic limb movement disorder Status: Acute Assessment and Plan: The periodic limb movement arousal index was 34.1 during the CPAP titration, and the total limb movement index was 103.1. The limb movements were present throughout the night. Her ferritin level was 73 on 03/24/2022. A ferritin level below 75 may be a marker of iron deficiency which can cause Periodic limb movements. This patient has excessive limb movements causing arousal at night which may be contributing to her non restorative sleep. Ferritin level is indicated to exclude iron deficiency anemia as a contributing factor. Ferritin should be 75 ng/mL or greater. If ferritin is below this, iron supplementation should be given to achieve ferritin of 75 ng/mL. There are nonpharmacologic methods to treat limb movements including daily exercise, stretching calf muscles before bed, avoiding excessive amounts of caffeine and alcohol, vitamin B supplementation, magnesium lotion massaged into legs before bed, and use of a weighted blanket. Pharmacologic therapy is very effective for restless legs syndrome and limb movements during sleep and may include [id number] voltage-gated calcium channel ligands such as gabapentin which is preferable to dopaminergic agents which can have augmentation. Other treatments can include opioids and benzodiazepines. Data The data obtained during this sleep study is adequate for interpretation. Certification This sleep study has been reviewed by a board certified sleep medicine ph ysician.
[2024-06-06 19:11] VITALS: BMI 41.7
== END 2024-05-16 06:43 | disposition home or self-care (01) ==
PROVIDERS: PCP Family Medicine; Visit Provider Internal Medicine Critical Care Medicine
DX: G47.33 Obstructive sleep apnea (adult) (pediatric) (principal); G47.61 Periodic limb movement disorder
CPT/HCPCS: 36415; 80047; 80053; 85025; 95811

== ENCOUNTER 2024-07-01 13:26 | Emergency (ER) | payer MEDICARE, SELFPAY ==
--- NOTE | ~2024-07-01 | XR_ITS ---
XR chest 2V 07/01/2024 13:57 Indication: Cough Procedure: 2 view chest Comparison: Comparison to multiple prior studies sequentially, with oldest reviewed study dated 10/08. Findings: Heart size normal. Chronic right middle lobe atelectasis/scarring. No acute focal pneumonia , edema, pleural effusion or pneumothorax. Calcified granuloma left apex. The lungs are hyperinflated which is consistent with, but not diagnostic of chronic obstructive pulmonary disease. Impression: 1: No acute cardiopulmonary disease. Reviewed, dictated and finalized at location B. 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
--- NOTE | 2024-07-01 13:47 | ED.URI ---
HPI - URI/Sore Throat General Chief Complaint: Upper Respiratory Infection Stated Complaint: coughing Time Seen by Provider: 07/01/24 13:47 Source: patient, RN notes reviewed and old records reviewed Mode of arrival: ambulatory Limitations: no limitations History of Present Illness HPI Narrative: 74-year-old female presents to the [facility] with complaints of a cough. Reports symptoms for approximately 2 weeks. Has taken [id number] products. Related Data Home Medications ?Medication ?Instructions ?Recorded ?Confirmed ?Last Taken ?Type albuterol sulfate 90 mcg/actuation inhalation 07/01/24 Unknown History aerosol inhaler blood sugar diagnostic (OneTouch 07/01/24 Unknown History Ultra Test strips) blood-glucose meter (OneTouch 07/01/24 Unknown History Ultra2 Meter) buspirone 15 mg tablet mg 07/01/24 Unknown History dapagliflozin propanediol 10 mg mg 07/01/24 Unknown History tablet (Farxiga) diltiazem HCl 120 mg mg PO 07/01/24 Unknown History capsule,extended release 24 hr, controlled duloxetine 20 mg capsule,delayed mg PO 07/01/24 Unknown History release ezetimibe 10 mg tablet mg 07/01/24 Unknown History rosuvastatin 10 mg tablet mg 07/01/24 Unknown History spironolactone 25 mg tablet mg 07/01/24 Unknown History Allergies Allergy/AdvReac Type Severity Reaction Status Date / Time No Known Allergies Allergy Verified 07/01/24 14:05 Review of Systems Review of Systems: All systems reviewed & are unremarkable except as noted in HPI and below Constitutional: Constitutional: Reports no additional constitutional complaints ENT: Reports system reviewed and no additional complaints, except as documented Cardiovascular: Cardiovascular: Reports no additional cardiovascular complaints, Denies chest pain and Denies dyspnea Respiratory: Respiratory: Reports as per HPI, Reports chest congestion, Reports cough and Denies dyspnea Gastrointestinal: Gastrointestinal: Reports no additional gastrointestinal complaints, Denies abdominal pain, Denies nausea and Denies vomiting Musculoskeletal: Musculoskeletal: Reports no additional musculoskeletal complaints Integumentary/Breasts: Skin/Breast: Reports system reviewed and no additional complaints, except as docu PMFSH Comments At the time of my signature, I reviewed and agree with the nursing past medical, surgical, social, and family history. There is no relevant family history pertinent to the patient complaint. Exam Const: General: cooperative, healthy appearing, comfortable, no acute distress, well developed, alert and well nourished Nutritional Appearance: well nourished and obese Orientation/consciousness: patient oriented x3 Limitations: no limitations HENMT: Head: normal to inspection Ears: hearing grossly normal bilaterally, external ears normal, TM's normal bilaterally, EAC's normal, mastoids normal and no periauricular adenopathy Face/Nose/Sinus: Normal external nose present, normal facial exam and face symmetric Face and sinus: normal facial exam and face symmetric Throat: posterior oropharynx normal, uvula midline and no uvular edema Eyes: General: appearance normal, both eyes and all related structures Alignment and Position: alignment normal Periorbital: periorbital findings normal Neck: Neck: normal visual inspection, full ROM, no lymphadenopathy and no meningeal signs Chest: Chest palpation & inspection: normal inspection of the chest Resp: Effort & Inspection: normal respiratory effort and able to speak in complete sentences Auscultation: clear to auscultation bilaterally, no crackles, no rales, no rhonchi, no wheezes and diminished lung sounds bilateral in the lower lung gold Cardio: Rate: regular rate Skin: General skin exam: normal color and no rashes or lesions noted Lesions: no lesions Rashes: no rashes Wounds: no wounds Neuro: General: patient oriented x3, gait normal, tone normal, moves all extremities and no meningeal signs Cognition (Neuro): normal cognition Speech: normal speech Gait exam (Neuro): Normal gait present Extrem: General: normal to inspection, full ROM, capillary refill normal and normal gait Psych: Appearance: grossly normal and well kempt Mental Status: mental status grossly normal Speech and movement: Normal speech and movement present and Clear speech present Affect: normal affect Attitude: cooperative Course Course Level of Care: Express Care Visit Vital Signs Vital signs: Vital Signs Temperature 98.3 F 07/01/24 13:54 Pulse Rate 69 07/01/24 13:54 Respiratory Rate 16 07/01/24 13:54 Blood Pressure 155/83 H 07/01/24 13:54 Pulse Oximetry 97 07/01/24 13:54 Oxygen Delivery Room Air 07/01/24 13:54 Temperature 98.3 F 07/01/24 13:54 Pulse Rate 69 07/01/24 13:54 Respiratory Rate 16 07/01/24 13:54 Blood Pressure 155/83 H 07/01/24 13:54 Pulse Oximetry 97 07/01/24 13:54 Oxygen Delivery Room Air 07/01/24 13:54 Reviewed MDM - URI/Sore Throat MDM Narrative Medical decision making narrative: Patient sitting comfortably in exam room. Nontoxic, vitals stable. Patient in no acute distress. Patient presents with 2 week history of URI symptoms. Chest x-ray negative Due to patient's past medical history as well as signs and symptoms at length of symptoms will treat with doxycycline. Patient appropriate for outpatient treatment and follow-up Discharge instructions reviewed with patient, as well as provided in writing per nursing staff. The instructions also include specific and strict return/GO TO THE ER as well as f/u information. All questions have been answered, and the patient deny any further questions with discharge and discharge plan. Some parts of this dictation were generated by voice recognition software and may contain typographical and/or grammatical inaccuracies. Differential Diagnosis Differential diagnosis: Likely upper respiratory infection, sinusitis, viral infection and bronchitis Imaging Data Radiologist's impression: XR chest 2V 07/01/2024 13:57 Indication: Cough Procedure: 2 view chest Comparison: Comparison to multiple prior studies sequentially, with oldest reviewed study dated 10/09/2015. Findings: Heart size normal. Chronic right middle lobe atelectasis/scarring. No acute focal pneumonia, edema, pleural effusion or pneumothorax. Calcified granuloma left apex. The lungs are hyperinflated which is consistent with, but not diagnostic of chronic obstructive pulmonary disease. Impression: 1: No acute cardiopulmonary disease. Critical Care Time Critical Care Time Critical Care Time: No Discharge Plan Discharge Clinical Impression: Bronchitis Patient Disposition: Home, Self-Care Condition: Stable Instructions: Antibiotic Form, Acute Bronchitis (ED) Additional Instructions: We will call you this afternoon with the results of your chest x-ray Use your inhaler every 4-5 hours for the next 2-3 days while awake. Than as needed Take the doxycycline, antibiotic, as prescribed It is very important to treat your symptoms. Drink plenty of water, Gatorade, Pedialyte, ice pops or Jell-O. -Alternate Tylenol and Motrin per package directions for fever or pain. You can alternate every 4 hours -Antihistamine medication such as Benadryl at night and Zyrtec/Claritin/Becky during the day can help improve symptoms. -doing daily nasal irrigations can help relieve pressure your sinuses. Things like a Neti pot -Use Flonase twice a day for 5 days then daily to help reduce the inflammation and dry up your sinuses. -You can also use Mucinex. Be sure to drink plenty of water with this medication at least 8 ounces with every dose and it is important to drink 8 to 10 glasses of water per day. Water is a natural decongestant -Eat and drink things that are easy to swallow, like tea or soup, or popsicles. -Oral rinses such as: Salt water gargles and/or may use topical anesthetic (eg. Chloraseptic spray) or lozenges to relieve dryness or throat pain). -Frequent hand washing or hand enrollment consultant is one of the best ways to prevent spread of infection. -Using a vaporizer or humidifier at night will also help thin secretions and help with coughing up phlegm. -Follow up with primary care provider in 7-10 days if condition is not improving - For new or worsening symptoms go directly to the nearest ER Patient Language: Mongolian Prescriptions: New doxycycline monohydrate 100 mg tablet 100 mg PO BID Qty: 20 0RF No Action (DME) blood-glucose meter [OneTouch Ultra2 Meter] Misc MISCELLANEOUS (DME) OneTouch Ultra Test Strip MISCELLANEOUS spironolactone 25 mg tablet diltiazem HCl 120 mg capsule,ext.rel 24h degradable PO albuterol sulfate 90 mcg/actuation HFA aerosol inhaler INHALATION buspirone 15 mg tablet ezetimibe 10 mg tablet rosuvastatin 10 mg tablet duloxetine 20 mg capsule,delayed release(DR/EC) PO dapagliflozin propanediol [Farxiga] 10 mg tablet Follow-up/Referrals: Sal Fitzpatrick MD [Primary Care Provider] - 1 Week ([facility] care follow up ) Stand Alone Forms: Work/School Release IP Time of Disposition: 15:16
[2024-07-01 13:54] VITALS: BP 155/83; PULSE 69; RESP 16; TEMP 36.8; O2SAT 97
== END 2024-07-01 15:20 | disposition home or self-care (01) ==
PROVIDERS: Emergency Provider Nurse Practitioner; PCP Family Medicine
DX: J40 Bronchitis, not specified as acute or chronic (principal)
CPT/HCPCS: 71046; 99213; G0463

== ENCOUNTER 2024-07-23 13:54 | Outpatient (CLI) | payer MEDICARE, SELFPAY ==
--- NOTE | ~2024-07-23 | MM_ITS ---
EXAMINATION: MM screening reese BI w etta HISTORY: Screening TECHNIQUE: Craniocaudal and mediolateral oblique 3-D tomosynthesis images were obtained and synthetic 2-D images were generated. CAD analysis was submitted and interpreted. COMPARISON: Comparison to multiple prior studies sequentially, with oldest reviewed study dated 04/13. BREAST PARENCHYMAL COMPOSITION: Not Dense: The breasts are almost entirely fatty. FINDINGS: There is a new mass in the lower central aspect of the left breast, posterior third measuri ng 3 mm. The right breast is stable without evidence for malignancy. IMPRESSION: 1. New 3 mm left breast mass lower central breast, posterior third. 2. Additional mammographic views and possible breast ultrasound are recommended. BI-RADS Category 0: Incomplete: Needs additional imaging evaluation. Reviewed, dictated and finalized at location B. INSERTER IMPRESSION: 1. New 3 mm left breast mass lower central breast, posterior third. 2. Additional mammographic views and possible breast ultrasound are recommended . BI-RADS Category 0: Incomplete: Needs additional imaging evaluation.
== END 2024-07-23 13:55 | disposition home or self-care (01) ==
PROVIDERS: PCP Obstetrics & Gynecology; Visit Provider Obstetrics & Gynecology
DX: Z12.31 Encounter for screening mammogram for malignant neoplasm of breast (principal); R92.8 Other abnormal and inconclusive findings on diagnostic imaging of breast
CPT/HCPCS: 77063; 77067

== ENCOUNTER 2024-08-23 13:42 | Outpatient (CLI) | payer MEDICARE, SELFPAY ==
--- NOTE | ~2024-08-23 | US_ITS ---
EXAMINATION: US thyroid DATE: 08/23/2024 14:29 INDICATION: Hyperparathyroidism. TECHNIQUE: Multiple ultrasound images of the thyroid were obtained. COMPARISON: None. FINDINGS: The right thyroid lobe measures 5.2 x 1.4 x 2.2 cm. The left thyroid lobe measures 4.4 x 1.1 x 1.4 c m. There is a 4 mm nodule in right thyroid lobe. IMPRESSION: 1. Small thyroid nodule, likely not clinically significant. No follow-up is needed. Reviewed, dictated and finalized at location A. RUMENTATION AND CONTROLS DESIGNER IMPRESSION: 1. Small thyroid nodule, likely not clinically significant. No follow-up is nee ded.
--- OUTSIDE RECORDS SUMMARY | 2024-08-23 13:47 | XMS_ITS | Referral Summary ---
Author Organization [facility] al Address [address] [place] [address] Care Team Providers Care Project Geologist Name Role Phone Sal Fitzpatrick MD Primary Care Provider [phone] Dominguez East MD Unavailable [phone] Allergies No known active allergies Medications citalopram (CeleXA) 40 mg tablet take 1 Tablet by oral route every day 0 0 6 Active cholecalciferol (VITAMIN D-3) 5,000 unit capsule Take 1 capsule (5,000 Units total) by mouth daily Active docusate calcium (COLACE) 240 mg capsuleIndication s:constipation Take 1 capsule (240 mg total) by mouth 2 (two) times a day Active ibuprofen (ADVIL,MOTRIN) 200 mg tab/cap Take by mouth every 6 (six) hours as needed for pain. Active furosemide (LASIX) 20 mg tabletIndications :Bilateral lower extremity edema TAKE 1 TABLET BY MOUTH EVERY DAY NEEDED FOR EDEMA 90 tablet 3 1 Active celecoxib (CeleBREX) 100 mg capsule Take 1 capsule (100 mg total) by mouth 2 (two) times a day 2 Active ezetimibe (ZETIA) 10 mg tablet Take 1 tablet (10 mg total) by mouth daily 2 Active Bystolic 20 mg tablet TAKE 1 TABLET BY MOUTH EVERY DAY 90 tablet 3 3 Active losartan (COZAAR) 100 mg tablet TAKE 1 TABLET BY MOUTH EVERY DAY 90 tablet 2 3 Active rosuvastatin (CRESTOR) 10 mg tabletIndications :Infrarenal abdominal aortic aneurysm (AAA) without rupture (HCC),Hyperlipide lindsay LDL goal <100 TAKE 1 TABLET BY MOUTH EVERY DAY 90 tablet 2 4 Active spironolactone (ALDACTONE) 25 mg tabletIndications :Primary hypertension TAKE 1 TABLET (25 MG TOTAL) BY MOUTH DAILY. 90 tablet 3 4 03/19/20 25 Active dilTIAZem XR 120 mg 24 hr capsule TAKE 1 CAPSULE BY MOUTH EVERY DAY 90 capsule 3 4 Active Active Problems Problem Noted Date Diagnosed Date Infrarenal abdominal aortic aneurysm (AAA) witho ut rupture 11/25/2022 Assessment & Plan (11/10/2023 2:18 PM CDT): 3.4 cm abdominal aortic aneurysms. Continue risk factor modification with ASA statin therapy good blood pressure control. Follow up in 1 year with repeat aortoiliac duplex. Ruptured infrarenal abdominal aortic aneurysm (A AA) 10/27/2022 Assessment & Plan (10/27/2022 7:44 AM CDT): 3.1 cm infrarenal AAA. Discussed findings with the patient, discussed surgical recommendation at 5-5.5 cm. We will continue ongoing surveillance with aortoiliac duplex in 1 year. Recommend ASA and statin therapy. Morbid (severe) obesity due to excess calories 1 Body mass index 40.0-44.9, adult ([facility]/HCC) 04/28 Hyperlipidemia LDL goal <100 06/16/2021 Assessment & Plan (11/10/2023 2:19 PM CDT): Stable continue Crestor 10 mg. Assessment & Plan (10/27/2022 7:44 AM CDT): Continue Zetia, if she can tolerate a statin that would be preferred. AKOSUA (obstructive sleep apnea) 03/20/2019 Bilateral lower extremity edema 03/20/2019 Chest pressure 08/20/2018 Atypical chest pain 08/20/2018 Preop examination 06/30/2017 Lumbago 04/11/2017 Shortness of breath 12/23/2016 Cramp of both lower extremities 12/23/2016 Ventricular premature beats 08/27/2014 Overview (10/21/2016): PVCs (premature ventricular contractions) Palpitations 11/30/2013 Overview (10/20/2016): Palpitation Hypertension 11/30/2013 Overview (10/22/2016): Hypertension Assessment & Plan (11/10/2023 2:18 PM CDT): Stable continue losartan 100 mg. Assessment & Plan (10/27/2022 7:44 AM CDT): Stable continue Lasix 20 mg. Arthralgia of ankle 11/23/2012 Osteoarthritis of knee 01/06/2011 Social History Tobacco Use Types Packs/Day Years Used Date Smoking Tobacco: Never Smokeless Tobacco: Never Tobacco Cessation:Counseling Given: Not Answered Alcohol Use Standard Drinks/Week Comments No 0 (1 standard drink = 0.6 oz pur e alcohol) Comments Unknown Sex and Gender Information Value Date Recorded Sex Assigned at Not on file Legal Sex Female 12:16 AM ICE CREAM VAN VENDOR Gender Identity Not on file Sexual Orientation Not on file Last Filed Vital Signs Vital Sign Reading Time Taken Comments Blood Pressure 167/100 11/08/2023 9:25 AM CDT Pulse 102 11/08/2023 9:25 AM CDT Temperature - - Respiratory Rate 94 03/20/2020 10:16 AM CDT Oxygen Saturation 97% 11/08/2023 9:25 AM CDT Inhaled Oxygen Concentration - - Weight 104.8 kg (231 lb) 08/21/2023 11:03 AM ICE CREAM VAN VENDOR Height 160 cm (5' 3 ) 08/21/2023 11:03 AM ICE CREAM VAN VENDOR Body Mass Index 40.92 08/21/2023 11:03 AM ICE CREAM VAN VENDOR Plan of Treatment Not on file Insurance [facility] A[employer] MEDICARE GOLD AETNA MEDICARE GOLD Care Teams Project Geologist Relationship Specialty Start Date End Date Sal Fitzpatrick MD PCP - General 02/24/17 Dominguez East MD Referring Physician Orthopedic Surgery 09/11/18
--- OUTSIDE RECORDS SUMMARY | 2024-08-23 13:47 | XMS_ITS | Clinical Summary ---
Author Organization [facility] Address [address] [place] [address] Care Team Providers Care Manager Agriculture Name Role Phone Sal Fitzpatrick MD Primary Care Provider [phone] Allergies No known active allergies Medications busPIRone (BUSPAR) 15 mg Tablet Take 15 mg by mouth 2 times daily. Active DULoxetine (CYMBALTA) 60 mg Capsule, Delayed Release(E.C.) Take 60 mg by mouth daily. Active omeprazole (PriLOSEC) 40 mg Capsule, Delayed Release(E.C.) Take 40 mg by mouth daily. Active spironolactone (ALDACTONE) 25 mg tablet Take 25 mg by mouth daily. Active albuterol sulfate HFA 90 mcg/actuation aerosol inhaler Take 2 Puffs by inhalation every 6 hours as needed for Shortness of Breath. Active ezetimibe (ZETIA) 10 mg tablet Take 10 mg by mouth daily. Active rosuvastatin (CRESTOR) 10 mg tablet Take 10 mg by mouth daily. Active losartan (COZAAR) 100 mg tablet Take 100 mg by mouth daily. Active lancet-gluc test strip-needles Combo Pack by [facility].(Non-Drug; Combo Route) route. Active dapagliflozin propanediol (Farxiga) 10 mg Tablet Take 10 mg by mouth daily. Active diltiaZEM (DILACOR XR) 120 mg Extended Release capsule Take 120 mg by mouth daily. 3 Active Active Problems No known active problems Encounters Date Type Department Care Team Description 08/07/2024 External Device Data [facility] ABSTRACTION Provider, Abstract 08/06/2024 External Device Data [facility] ABSTRACTION Provider, Abstract 07/30/2024 External Device Data [facility] ABSTRACTION Provider, Abstract from Last 3 Months Family History Medical History Relation Name Comments Dementia Brother 1 Diabetes Brother 2 No Known Problems Child 1 No Known Problems Child 2 Throat Cancer Father Ovarian Cancer Mother Stomach Cancer Mother Ovarian Cancer Sister Relation Name Status Comments Brother 1 Brother 2 Child 1 Alive Child 2 Alive Father Mother Sister Alive Social History Tobacco Use Types Packs/Day Years Used Date Smoking Tobacco: Never Tobacco Cessation:Counseling Given: Not Answered Alcohol Use Standard Drinks/Week Comments Yes 0 (1 standard drink = 0.6 oz pur e alcohol) socially once every 6 months Comments Unknown Sex and Gender Information Value Date Recorded Sex Assigned at Not on file Legal Sex Female 2:19 PM CDT Gender Identity Not on file Sexual Orientation Not on file Last Filed Vital Signs Vital Sign Reading Time Taken Comments Blood Pressure 134/91 05/15/2024 2:10 PM CDT Pulse 89 02/14/2024 10:10 AM CDT Temperature 36.8 C (98.2 F) 05/15/2024 2:10 PM CDT Respiratory Rate 16 05/15/2024 2:10 PM CDT Oxygen Saturation 94% 02/14/2024 10: 06 AM CDT Inhaled Oxygen Concentration - - Weight 103.8 kg (228 lb 12.8 oz) 05/15/2024 2:10 PM CDT Height 157.5 cm (5' 2 ) 02/14/2024 10:0 6 AM CDT Body Mass Index 41.85 02/14/2024 10:06 AM CDT Plan of Treatment Upcoming Encounters Date Type Department Care Team (Late st Contact Info) Description 09/18/2024 2:15 PM TOE STAPLER Office Visit [facility] Oncology and Hematology - [place] [address] [facility] [address] [place] [address] Rafael Camp MD [address] [facility] [address] [place] [address] Health Maintenance Due Date Last Done Comments DTAP/TDAP/TD VACCINES (1 - Tdap) 1969 BREAST CANCER SCREENING 1990 COLORECTAL SCREENING 1995 Colorectal Cancer Screening 1995 FIT-DNA Q 3 years 1995 FIT/FOBT Q 1 year 1995 Flex Sig/CT Colonography Q 5 years 1995 PNEUMOCOCCAL VACCINE 65+ YEARS (1 of 1 - PCV) 01/03/20 00 ZOSTER VACCINE (1 of 2) 01/03/2000 RSV VACCINE (60+ or ) (1 - Risk 60-74 years 1-dose series) 2010 OSTEOPOROSIS SCREENING 2015 INFLUENZA VACCINE (#1) 2024 Insurance [facility]ENA [facility] Address: [facility] [id number] [place] [id number] Care Teams Manager Agriculture Relationship Specialty Start Date End Date Sal Fitzpatrick MD [address] [place] [address] PCP - General Family Practice 02/07/24
--- OUTSIDE RECORDS SUMMARY | 2024-08-23 13:47 | XMS_ITS | Clinical Summary ---
Author Organization [facility] al Address [address] [place] [address] Care Team Providers Care Entry Level Sales Representative Name Role Phone Sal Fitzpatrick MD Primary Care Provider [phone] Dominguez East MD Unavailable [phone] Allergies No known active allergies Medications citalopram [...] calories 1 Body mass index 40.0-44.9, adult ([facility]/HCC) 04/28 Hyperlipidemia LDL goal <100 06/16/2021 Assessment [...] of ankle 11/23/2012 Osteoarthritis of knee 01/06/2011 Medical History Medical History Date Comments Hx Other Medical DJD - Cervical sp; knees, ankles Hx Other Medical Sleep Apnea, CP AP Hx Other Medical Palps - VPC's Hx Other Medical Diabetes Type I I Hypertension Hypertension Family History Medical History Relation Name Comments Heart attack Brother 2 Myocardial Infa rction; Relation Name Status Comments Brother 1 Alive Brother 2 Social History Tobacco Use Types Packs/Day Years Used Date Smoking Tobacco: Never Smokeless Tobacco: Never Tobacco Cessation:Counseling Given: Not Answered Alcohol Use Standard Drinks/Week Comments No 0 (1 standard drink = 0.6 oz pur e alcohol) Comments Unknown Sex and Gender Information Value Date Recorded Sex Assigned at Not on file Legal Sex Female 12:16 AM LIQUEFACTION PLANT OPERATOR Gender Identity Not on file Sexual Orientation Not on file Obstetrics History Last Filed Vital Signs Vital Sign Reading Time Taken Comments Blood Pressure 167/100 11/08/2023 9:25 AM CDT Pulse 102 11/08/2023 9:25 AM CDT Temperature - - Respiratory Rate 94 03/20/2020 10:16 AM CDT Oxygen Saturation 97% 11/08/2023 9:25 AM CDT Inhaled Oxygen Concentration - - Weight 104.8 kg (231 lb) 08/21/2023 11:03 AM LIQUEFACTION PLANT OPERATOR Height 160 cm (5' 3 ) 08/21/2023 11:03 AM LIQUEFACTION PLANT OPERATOR Body Mass Index 40.92 08/21/2023 11:03 AM LIQUEFACTION PLANT OPERATOR Plan of Treatment Health Maintenance Due Date Last Done Comments Breast Cancer Screening-Mammogram 1950 Colon Cancer Screening-Colonoscopy 1950 Depression Screening 1950 Fall Risk Assessment 1950 Hepatitis C Screening 1950 Osteoporosis Screening-Bone Density Scan 1950 DTaP/Tdap/Td Vaccine (1 - Tdap) 1961 Hepatitis B Screening 01/03/1968 Zoster Vaccine (2 of 3) 11/18/2013 09/23/2013 Pneumococcal vaccine 65+ (1 of 1 - PCV) 2015 Well Visit 65+ 2015 Influenza Vaccine (#1) 2024 Insurance [facility] Address: [address] [address] [facility] MEDICARE GOLD AETNA MEDICARE GOLD Care Teams Entry Level Sales Representative Relationship Specialty Start Date End Date Sal Fitzpatrick MD PCP - General 02/24/17 Dominguez East MD Referring Physician Orthopedic Surgery 09/11/18
--- OUTSIDE RECORDS SUMMARY | 2024-08-23 13:47 | XMS_ITS | Clinical Summary ---
Author Organization [facility] Address [address] [place] [id number] Care Team Providers Care Bill Recapitulation Clerk Name Role Phone Unavailable Primary Care Provider Unavailabl e Social History Tobacco Use Types Packs/Day Years Used Date Smoking Tobacco: Never Assessed Comments Unknown Sex and Gender Information Value Date Recorded Sex Assigned at Not on file Legal Sex Female 7:22 PM CDT Gender Identity Not on file Sexual Orientation Not on file Plan of Treatment Health Maintenance Due Date Last Done Comments Colorectal Cancer Screening Colonoscopy (10 Years) 1950 Hepatitis C 01/03/1968 DTaP, Tdap and Td Vaccines ( 1 - Tdap) 1969 Mammogram Screening 1990 Zoster Vaccines (1 of 2) 01/03/2000 Dexa Scan (General) 2015 Pneumococcal Vaccine: 65+ Ye ars (1 of 1 - PCV) 2015 COVID-19 Vaccine (2023-2 5 season) 2024 Influenza Adult (#1) 2024 RSV Immunization or 60+ Years (1 - 1-dose 75+ series) 2025 Meningococcal B Vaccine Aged Out No l onger eligible based on patient's age to complete this topic Meningococcal Vaccine Aged Out No gaby markel eligible based on patient's age to complete this topic RSV Immunizations Under 20 Months Aged Out No longer eligible based on patient's age to complete this topic
--- OUTSIDE RECORDS SUMMARY | 2024-08-23 13:47 | XMS_ITS | CONTINUITY OF CARE DOCUMENT ---
Author Name arturo jerryjose Address Unknown Organization [facility] Address [address] [place] [address] [address] [place] [address] Phone [phone] Care Team Providers Care Gatekeeper Name Role Phone Darren Pastor MD Unavailable [phone] FRANSICO GUARDADO MD Unavailable [phone] FRANSICO GUARDADO MD Unavailable [phone] PROBLEMS Condition Status Date Provider Notes PVC'S active Darren Pastor MD HTN-06/22 ECHO EF 60;LABS PER DR GUARDADO active ? Darren Pastor MD CHEST PAIN-NEG ECHO & NUC 2007 active ? Mary Pastor MD HYPERCHOLESTEROLEMIA;LABS PER PRIMARY active 4 Darren Pastor MD DYSPNEA, CHRONIC active Darren Pastor MD ENCOUNTERS Date Type Provider Location Encounter Diag nosis - In-person encounter Office Visit Darren Pastor MD [place] [facility]22 ECHO EF 60;LABS PER DR GUARDADOCHEST PAIN-NEG ECHO & NUC 2007HYPERCHOLESTEROLE [place];LABS PER PRIMARYDYSPNEA, CHRONIC VITAL SIGNS Date Observation Value Provider blood pressure, diastolic 89 mm[Hg] Laina seph [place] blood pressure, systolic 162 mm[Hg] Tito eph [place] pulse rate 64 /min Collin [place] oxygen saturation, oximetry 97 % Collin [place] respiratory rate E&M 16 /min Collin [place] weight E&M 204 [lb_av] Collin [place] ALLERGIES No Known Drug Allergies RESULTS Date Observation Value Provider Reference Range Interpretation Location B-type natriuretic peptide 60 pg/mL [facility] <100 Normal D-dimer quantitative mcg/mL 0.33 MCG/ML FEU [facility] <0.50 HISTORY OF MEDICATION USE Medication Status Instructions Dates Provider Indications Com ments ZOCOR 40 MG ORAL TABLET active ONE TAB. AT BEDTIME Darren Pastor MD HYDROCHLOROTHIAZIDE 25 MG ORAL TABLET active 1 tablet by mouth daily Collin Mallory OSTEO BI-FLEX REGULAR STRENGTH TABLET active 1 tablet by mouth daily Collin Mallory VITAMIN B-12 TABS active 1 tablet by mouth daily Collin [place] DICLOFENAC SODIUM 75 MG ORAL TABLET DELAYED RELEASE active 1 tablet by mouth daily Collin Swartzacosteve VITAMIN D 82009 UNIT CAPS active 1 capsule by mouth weekly Collin Mallory BYSTOLIC 10 MG ORAL TABLET active 1 tablet by mouth daily Collin Mallory LISINOPRIL 20 MG ORAL TABLET active ONE TAB. DAILY (hgher dose) Darren Pastor MD high bp CALTRATE 600+D PLUS TABS completed daily - Collin Sw[place] FISH OIL 300 MG CAPS active daily Earl Vickers RN VITAMIN C TABS completed daily - Collin Mallory DICLOFENAC SODIUM 75 MG ORAL TABLET DELAYED RELEASE completed bid - Collin Sw[place] ASPIRIN 81 MG ORAL TABLET active ONE TAB. DAILY Darren Pastor MD ATENOLOL-CHLORTHALIDON E 50-25 MG ORAL TABLET completed daily - Collin Mallory SOCIAL HISTORY Date Observation Value Provider social history E&M Marital Statu s: L luana with family/friends E thnicity: Earl Vickers RN social history reviewed E&M reviewed Earl Vickers RN caffeine use, averag e drinks per day yes Collin Mallory alcohol use, average drinks per day 0 /d Collin Mallory physical exercise, f requency, days per week yes Collin Mallory smoking status Non-Smoker Collin wilson MENTAL STATUS Date Observation Value Provider assessment of judgme nt and insight E&M Alert and oriented to time, place and person. Mood and affect are normal. Earl Vickers RN INSURANCE PROVIDERS Payer name Policy type / Coverage type Mika red green party ID ISHA- OPEN ACCESS/PPO Other [id number] TREATMENT PLAN Date Name Performer sob will w/u: H er updated medication list for this problem includes: Aspirin 81 Mg Tabs (Aspirin) ..... One tab. daily Lisinopril 20 Mg Tabs (Lisinopril) ..... One tab. daily (hgher dose) Bystolic 10 Mg Tabs (Nebivolol hcl) ..... 1 tablet by mouth daily Hydrochlorothiazide 25 Mg Tabs (Hydrochlorothiazide) ..... 1 tablet by mouth daily Orders: C omplete Echo (CPT-44305) X -Ray, Chest, PA & Lateral (CPT-95112) B TYPE NATRIURETIC PEPTIDE (BNP) (88203) BP today: 162/89 Prior BP: / () N uclear Stress Findings: EF - 51%. [address] segment depression that meets criteria for ischemia. P VC's and bigeminy during the stress test. N ormal myocardial perfusion without infarct or ischemia. [facility] (11/16/2006) E chocardiogram: EF- 60%. N ormal LV systolic function. D iastolic dysfunction. T race mitral regurgitation. T race aortic insufficiency. T race pulmonary insufficiency. T race tricuspid regurgitation. PA pressure of 24mmHg. [facility] (06/28/2007) Darren Pastor MD sob will w/u: H er updated medication list for this problem includes: Zocor 40 Mg Tabs (Simvastatin) ..... One tab. at bedtime BP today: 162/89 Prior BP: / () Darren Pastor MD sob will w/u: H er updated medication list for this problem includes: Aspirin 81 Mg Tabs (Aspirin) ..... One tab. daily Lisinopril 10 Mg Tabs (Lisinopril) ..... 1 tablet by mouth daily Bystolic 10 Mg Tabs (Nebivolol hcl) ..... 1 tablet by mouth daily BP today: 162/89 Prior BP: / () H olter Monitor: SInus rhythm with sinus bradycardia and sinus tachycardia with rates from 50-127bpm. R are isolated VE beats with 0 pairs and no runs. R are isolated SVE beats with no pairs. [facility] (04/26/2007) E vent Monitor: PVC. [facility] (08/30/2007) N uclear Stress Findings: EF - 51%. [address] segment depression that meets criteria for ischemia. P VC's and bigeminy during the stress test. N ormal myocardial perfusion without infarct or ischemia. [facility] (11/16/2006) E chocardiogram: EF- 60%. N ormal LV systolic function. D iastolic dysfunction. T race mitral regurgitation. T race aortic insufficiency. T race pulmonary insufficiency. T race tricuspid regurgitation. PA pressure of 24mmHg. [facility] (06/28/2007) Darren Pastor MD sob will w/u: H er updated medication list for this problem includes: Aspirin 81 Mg Tabs (Aspirin) ..... One tab. daily Lisinopril 10 Mg Tabs (Lisinopril) ..... 1 tablet by mouth daily Bystolic 10 Mg Tabs (Nebivolol hcl) ..... 1 tablet by mouth daily Hydrochlorothiazide 25 Mg Tabs (Hydrochlorothiazide) ..... 1 tablet by mouth daily BP today: 162/89 Darren Pastor MD sob will w/u: H er updated medication list for this problem includes: Aspirin 81 Mg Tabs (Aspirin) ..... One tab. daily Lisinopril 10 Mg Tabs (Lisinopril) ..... 1 tablet by mouth daily Bystolic 10 Mg Tabs (Nebivolol hcl) ..... 1 tablet by mouth daily BP today: 162/89 Prior BP: / () N uclear Stress Findings: EF - 51%. [address] segment depression that meets criteria for ischemia. P VC's and bigeminy during the stress test. N ormal myocardial perfusion without infarct or ischemia. [facility] (11/16/2006) E chocardiogram: EF- 60%. N ormal LV systolic function. D iastolic dysfunction. T race mitral regurgitation. T race aortic insufficiency. T race pulmonary insufficiency. T race tricuspid regurgitation. PA pressure of 24mmHg. [facility] (06/28/2007) Darren Pastor MD sob will w/u Darren Pastor MD Date Name D-DIMER, QUANTITATIV E B TYPE NATRIURETIC P EPTIDE (BNP) X-Ray, Chest, PA & L ateral Complete Echo HISTORY OF PROCEDURES Procedure Date Procedure Name Provider Procedure Notes S tatus EKG Darren Pastor MD complete d
== END 2024-08-23 13:43 | disposition home or self-care (01) ==
PROVIDERS: Visit Provider Internal Medicine
DX: E04.1 Nontoxic single thyroid nodule (principal); E78.5 Hyperlipidemia, unspecified; E11.9 Type 2 diabetes mellitus without complications; I10 Essential (primary) hypertension; E66.01 Morbid (severe) obesity due to excess calories; Z68.41 Body mass index [BMI] 40.0-44.9, adult
CPT/HCPCS: 76536

== ENCOUNTER 2024-09-18 14:01 | Outpatient (CLI) | payer MEDICARE, SELFPAY ==
[2024-09-18 14:12] LABS: Basophils Percent Auto 0.4 % (0.2-1.2); Eosinophils Absolute Auto 0.3 K/mm3 (0-0.3); Eosinophils Percent Auto 2.9 % (0-4.4); Hematocrit 48.8 % (37.0-47.0); Hemoglobin 15.6 g/dL (12.0-15.0); Immature Granulocyte Absolute 0.02 K/mm3 (0.00-0.031); Immature Granulocyte Percent A 0.2 % (0-0.5); Lymphocytes Absolute Auto 1.86 K/mm3 (0.9-3.2); Lymphocytes Percent Auto 20.9 % (18.3-44.2); Mean Corpuscular Hemoglobin 29.2 pg (26-34); Mean Corpuscular Volume 91.4 fl (80-100); Mean Platelet Volume 12.8 fl (7.4-10.4); Monocytes Absolute Auto 0.8 K/mm3 (0.1-0.6); Monocytes Percent Auto 9.4 % (2.6-8.5); Neutrophils Absolute Auto 5.9 K/mm3 (1.3-6.7); Neutrophils Percent Auto 66.2 % (45.5-73.1); Platelet Count Result 187 k/mm3 (150-375); Red Blood Count 5.34 M/mm3 (4.2-5.4); Red Cell Distribution Width 14.6 % (11.5-14.5); White Blood Count 8.9 K/mm3 (4.5-10.0)
[2024-09-18 14:16] LABS: Blood Urea Nitrogen 22 mg/dL (8-26); Carbon Dioxide 27 mmol/L (22-30); Chloride 105 mmol/L (98-109); Estimated Glomerular Filt Rate > 60; Glucose 140 mg/dL (70-105); Ionized Calcium (POC) 1.34 mmol/L (1.11-1.31); Potassium 4.4 mmol/L (3.5-4.9); Sodium 141 mmol/L (138-146)
--- OUTSIDE RECORDS SUMMARY | 2024-09-18 15:40 | XMS_ITS | Encounter Summary ---
Author Organization [facility] Address [address] [place] [address] Care Team Providers Care Corn Popper Name Role Phone Sal Fitzpatrick MD Primary Care Provider [phone] Encounter Details Date Type Department Care Team (Late st Contact Info) Description 09/17/2024 External Device Data [facility] ABSTRACTION Provider, Abstract NO ADDRESS ON FILE Social History Tobacco Use Types Packs/Day Years Used Date Smoking Tobacco: Never Alcohol Use Standard Drinks/Week Comments Yes 0 (1 standard drink = 0.6 oz pur e alcohol) socially once every 6 months Comments Unknown Sex and Gender Information Value Date Recorded Sex Assigned at Not on file Legal Sex Female 2:19 PM CDT Gender Identity Not on file Sexual Orientation Not on file documented as of this encounter Plan of Treatment Upcoming Encounters Date Type Department Care Team (Late st Contact Info) Description 01/20/2025 1:15 PM CDT Office Visit [facility] Oncology and Hematology - [place] [address] [place] [address] Rafael Camp MD [address] [facility] [address] [place] [address] documented as of this encounter Visit Diagnoses Not on filedocumented in this encounter Care Teams Corn Popper Relationship Specialty Start Date End Date Sal Fitzpatrick MD [address] [place] [address] PCP - General Family Practice 02/07/24 documented as of this encounter
--- OUTSIDE RECORDS SUMMARY | 2024-09-18 15:40 | XMS_ITS | CONTINUITY OF CARE DOCUMENT ---
Author Name arturo jerryjose Address Unknown Organization [facility] Address [address] [place] [address] Phone [phone] Care Team Providers Care Glass Cutter Hand Name Role Phone Darren Pastor MD Unavailable FRANSICO GUARDADO MD Unavailable [phone] FRANSICO GUARDADO MD Unavailable PROBLEMS Condition Status Date Provider Notes DYSPNEA, CHRONIC active Darren Pastor MD HYPERCHOLESTEROLEMIA;LABS PER PRIMARY active 4 Darren Pastor MD CHEST PAIN-NEG ECHO & NUC 2007 active ? Mary Pastor MD HTN-06/22 ECHO EF 60;LABS PER DR GUARDADO active ? Darren Pastor MD PVC'S active Darren Pastor MD ENCOUNTERS Date Type Provider Location Encounter Diag nosis - In-person encounter Office Visit Darren Pastor MD [place] [facility] PVC'SHTN-06/22 ECHO EF 60;LABS PER DR GUARDADOCHEST PAIN-NEG [...] by mouth daily Collin Swartzacosteve VITAMIN D 71582 UNIT CAPS active 1 capsule by mouth [...] Policy type / Coverage type [employer] party ID ISHA- OPEN ACCESS/PPO Other [id number] TREATMENT PLAN Date Name Performer sob will [...] by mouth daily Orders: C omplete Echo (CPT-05629) X -Ray, Chest, PA & Lateral (CPT-77966) B TYPE NATRIURETIC PEPTIDE (BNP) (48613) BP today: 162/89 Prior BP: / () N uclear Stress Findings: EF - 51%. [address] segment depression that meets criteria for ischemia. P VC's and bigeminy during the stress test. N ormal myocardial perfusion without infarct or ischemia. [facility] (11/16/2006) E chocardiogram: EF- 60%. N ormal LV systolic function. D iastolic dysfunction. T race mitral regurgitation. T race aortic insufficiency. T race pulmonary insufficiency. T race tricuspid regurgitation. PA pressure of 24mmHg. [facility] (06/28/2007) Darren Pastor MD sob will w/u: [...] are isolated SVE beats with no pairs. [facility] (04/26/2007) E vent Monitor: PVC. [facility] (08/30/2007) N uclear Stress Findings: EF - 51%. [address] segment depression that meets criteria for ischemia. P VC's and bigeminy during the stress test. N ormal myocardial perfusion without infarct or ischemia. [facility] (11/16/2006) E chocardiogram: EF- 60%. N ormal LV systolic function. D iastolic dysfunction. T race mitral regurgitation. T race aortic insufficiency. T race pulmonary insufficiency. T race tricuspid regurgitation. PA pressure of 24mmHg. [facility] (06/28/2007) Darren Pastor MD sob will w/u: [...] ormal myocardial perfusion without infarct or ischemia. [facility] (11/16/2006) E chocardiogram: EF- 60%. N ormal LV systolic function. D iastolic dysfunction. T race mitral regurgitation. T race aortic insufficiency. T race pulmonary insufficiency. T race tricuspid regurgitation. PA pressure of 24mmHg. [facility] (06/28/2007) Darren Pastor MD sob will w/u Darren Pastor MD Date Name D-DIMER, QUANTITATIV E B TYPE NATRIURETIC P EPTIDE (BNP) X-Ray, Chest, PA & L ateral Complete Echo HISTORY OF PROCEDURES Procedure Date Procedure Name Provider Procedure Notes S tatus EKG Darren Pastor MD complete d
--- OUTSIDE RECORDS SUMMARY | 2024-09-18 15:40 | XMS_ITS | Clinical Summary ---
Author Organization [facility] al Address [address] [place] [address] Care Team Providers Care Assisted Living Associate Name Role Phone Sal Fitzpatrick MD Primary Care Provider [phone] Dominguez East MD Unavailable [phone] Allergies No known active allergies Medications citalopram [...] tabletIndications :Infrarenal abdominal aortic aneurysm (AAA) without rupture,Hyperlipi demia LDL goal <100 TAKE 1 TABLET BY [...] calories 1 Body mass index 40.0-44.9, adult ([facility]) 04/28 Hyperlipidemia LDL goal <100 06/16/2021 Assessment [...] on file Legal Sex Female 12:16 AM BLADE CHANGER Gender Identity Not on file Sexual Orientation [...] 104.8 kg (231 lb) 08/21/2023 11:03 AM BLADE CHANGER Height 160 cm (5' 3 ) 08/21/2023 11:03 AM BLADE CHANGER Body Mass Index 40.92 08/21/2023 11:03 AM BLADE CHANGER Plan of Treatment Health Maintenance Due Date Last Done Comments Breast Cancer Screening-Mammogram 1950 Colon Cancer Screening-Colonoscopy 1950 Depression Screening 1950 Fall Risk Assessment 1950 Hepatitis C Screening 1950 Osteoporosis Screening-Bone Density Scan 1950 DTaP/Tdap/Td Vaccine (1 - Tdap) 1961 Hepatitis B Screening 01/03/1968 Pneumococcal vaccine 65+ (1 of 1 - PCV) 01/03/2000 Zoster Vaccine (2 of 3) 11/18/2013 09/23/2013 Well Visit 65+ 2015 Influenza Vaccine (#1) 2024 Insurance [facility] MEDICARE GOLD [facility] MEDICARE GOLD [employer]ET[employer] MEDICARE GOLD Care Teams Assisted Living Associate Relationship Specialty Start Date End Date Sal Fitzpatrick MD PCP - General 02/24/17 Dominguez East MD Referring Physician Orthopedic Surgery 09/11/18
--- OUTSIDE RECORDS SUMMARY | 2024-09-18 15:40 | XMS_ITS | Clinical Summary ---
Author Organization [facility] Harriet Villegas Address [address] [place] [address] Care Team Providers Care Epidemiology Intern Name Role Phone Sal Fitzpatrick MD Primary Care Provider [phone] Allergies No known active allergies Medications busPIRone [...] Active lancet-gluc test strip-needles Combo Pack by [facility]Non-Drug; Combo Route) route. Active dapagliflozin propanediol (Farxiga) 10 mg Tablet Take 10 mg by mouth daily. Active diltiaZEM (DILACOR XR) 120 mg Extended Release capsule Take 120 mg by mouth daily. 3 Active Active Problems No known active problems Encounters Date Type Department Care Team Description 09/18/2024 2:15 PM PHOTOGRAPHIC SUPERVISOR Office Visit [facility] Oncology and Hematology - [place] [address] [place] [address] Rafael Camp MD Erythrocytosis (Primary Dx) 09/17/2024 External Device Data STL ABSTRACTION Provider, Abstract 09/03/2024 External Device Data STL ABSTRACTION Provider, Abstract 08/07/2024 External Device Data STL ABSTRACTION Provider, [...] Sign Reading Time Taken Comments Blood Pressure 197/112 09/18/2024 2:29 PM PHOTOGRAPHIC SUPERVISOR Pulse 91 09/18/2024 2:26 PM PHOTOGRAPHIC SUPERVISOR Temperature 36.5 C (97.7 F) 09/18/2024 2:26 PM PHOTOGRAPHIC SUPERVISOR Respiratory Rate 15 09/18/2024 2:26 PM PHOTOGRAPHIC SUPERVISOR Oxygen Saturation 95% 09/18/2024 2:26 PM PHOTOGRAPHIC SUPERVISOR Inhaled Oxygen Concentration - - Weight 96.7 kg (213 lb 3.2 oz) 09/18/2024 2:26 P M PHOTOGRAPHIC SUPERVISOR Height 157.5 cm (5' 2 ) 02/14/2024 10:06 AM CDT Body Mass Index 38.99 02/14/2024 10:06 AM CDT Plan of Treatment Upcoming Encounters Date Type Department Care Team (Late st Contact Info) Description 01/20/2025 1:15 PM CDT Office Visit [facility] Oncology and Hematology - [place] [address] [place] [id number] Rafael Camp MD [address] [place] [address] Health Maintenance Due Date Last Done Comments DTAP/TDAP/TD VACCINES (1 - Tdap) 1969 BREAST CANCER SCREENING 1990 COLORECTAL SCREENING 1995 Colorectal Cancer Screening 1995 FIT-DNA Q 3 years 1995 FIT/FOBT Q 1 year 1995 Flex Sig/CT Colonography Q 5 years 1995 PNEUMOCOCCAL VACCINE 50+ YEARS (1 of 1 - PCV) 01/03/20 00 ZOSTER VACCINE (1 of 2) 01/03/2000 RSV VACCINE (60+ or ) (1 - Risk 60-74 years 1-dose series) 2010 OSTEOPOROSIS SCREENING 2015 INFLUENZA VACCINE (#1) 2024 Medicare Advantage ([place]) Prev entative Visit/Annual Wellness Visit 07/17/2024 Insurance [facility] MCR Care Teams Epidemiology Intern Relationship Specialty Start Date End Date Sal Fitzpatrick MD [address] [place] [address] PCP - General Family Practice 02/07/24
--- OUTSIDE RECORDS SUMMARY | 2024-09-18 15:40 | XMS_ITS | Encounter Summary ---
Author Organization [facility] [employer] [facility] Address [address] [place] [address] Care Team Providers Care Dinkey Locomotive Engineer Name Role Phone Sal Fitzpatrick MD Primary Care Provider [phone] Reason for Visit * Reason Comments Follow Up Encounter Details Date Type Department Care Team (Late st Contact Info) Description 09/18/2024 2:15 PM BUSINESS OBJECTS CONSULTANT Office Visit [facility] Oncology and Hematology - [place] [address] [facility] [address] [place] [address] Rafael Camp MD [address] [place] [address] Erythrocytosis (Primary Dx) Social History Tobacco Use Types Packs/Day Years [...] on file documented as of this encounter Last Filed Vital Signs Vital Sign Reading Time Taken Comments Blood Pressure 197/112 09/18/2024 2:29 PM BUSINESS OBJECTS CONSULTANT Pulse 91 09/18/2024 2:26 PM BUSINESS OBJECTS CONSULTANT Temperature 36.5 C (97.7 F) 09/18/2024 2:26 PM BUSINESS OBJECTS CONSULTANT Respiratory Rate 15 09/18/2024 2:26 PM BUSINESS OBJECTS CONSULTANT Oxygen Saturation 95% 09/18/2024 2:26 PM BUSINESS OBJECTS CONSULTANT Inhaled Oxygen Concentration - - Weight 96.7 kg (213 lb 3.2 oz) 09/18/2024 2:26 P M BUSINESS OBJECTS CONSULTANT Height - - Body Mass Index 38.99 02/14/2024 10:06 AM CDT documented in this encounter Progress Notes * Rafael Camp MD - 09/18/2024 3:10 PM CST HEMATOLOGY / ONCOLOGY PROGRESS NOTE Patient Identification: Name: Tammy Lynn Age: 74 y.o. Sex: female : 1950 DIAGNOSIS Secondary erythrocytosis CURRENT TREATMENT Baby aspirin TREATMENT HISTORY SUBJECTIVE Patient came to the office for follow-up visit. She denies any night sweats fevers and chills. Denies any chest pain and shortness of breath. She has some dyspnea on exertion. She has lost 15 pound weight. No other new complaints. Review of system Constitutional: Patient did not mention fevers, sweats, denies any tiredness and fatigue, 15 pound weight loss HEENT: Patient did not mention sinus congestion, hearing or vision problems Respiratory: Patient did not mention cough, dyspnea, wheeze Cardiovascular: Patient did not mention chest pain, exertional chest pressure/discomfort, nausea, syncope, shortness of breath, complain of dyspnea on exertion GI: Patient did not mention constipation, diarrhea, dsyphagia, reflux symptoms, vomiting, melena : Patient did not mention dysuria, frequency, incontinence, urgency Integumentary system: no lymphadenopathy, sweats, flushing Musculoskeletal: Patient not mention: myalgia, arthralgia Neurological: Patient did not mention blurry or disturbed vision, numbness/weakness, dizziness Skin: No lumps, bumps or rashes. 12 review of system was reviewed Objective: Vital signs in last 24 hours: As per nursing note Exam: General appearance: alert, cooperative, no distress, appears stated age Head: normocephalic, without obvious abnormality, atraumatic Eyes: conjunctivae/corneas clear, EOM's intact Ears: normal external ear canals AU Nose: Nares normal. Septum midline. Mucosa normal. No drainage or sinus tenderness Throat: Lips, mucosa, and tongue normal. Teeth and gums normal Neck: supple, symmetrical, trachea midline. Lungs: clear to auscultation bilaterally Heart: regular rate and rhythm, S1, S2 normal, no murmur, click, rub or gallop Abdomen: soft, non-tender. Bowel sounds normal. No masses, No organomegaly Extremities: extremities normal, atraumatic, no cyanosis or edema Skin: Skin color, texture, turgor normal. No rashes or lesions Lymph nodes: No lymphadenopathy Neuro: No obvious focal deficit Exam as above PATH LABS Labs from May 15 showed hemoglobin 15.1 hematocrit 47.6 Labs from September 18 showed WBC 8.9 hemoglobin 15.6 hematocrit 48.8 platelet 187,000 creatinine 0.8 Assessment: Plan: There are no active problems to display for this patient. 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 JAK2 mutation testing has not been done and not needed at this time. Labs showed elevated hemoglobin and hematocrit but not enough to do the phlebotomy. I recommended regular exercise and weight loss as well as continuation of aspirin. Follow-up with me in 4 months. Type 2 diabetes. Patient is on Farxiga. She has lost some weight. Hypertension. Blood pressure is elevated and she will follow-up with the primary care physician further management. Sleep apnea. She will continue using CPAP machine. 09/18/2024 Rafael Camp MD NESS OBJECTS CONSULTANT documented in this encounter Plan of Treatment Upcoming Encounters Date Type Department Care Team (Late st Contact Info) Description 01/20/2025 1:15 PM CDT Office Visit [facility] Oncology and Hematology - [place] [address] [place] [address] Rafael Camp MD [address] [place] [address] Scheduled Orders Name Type Priority Associated Diagnoses Orde r Schedule CBC WITH DIFFERENTIAL Lab Stat Erythrocytosis Expected: 01/08/2025, Expires: 09/18/2025 BASIC METABOLIC PANEL Lab Stat Erythrocytosis Expected: 01/08/2025, Expires: 09/18/2025 documented as of this encounter Visit Diagnoses Diagnosis Erythrocytosis- Primary Reserved for inherently not codable concepts WITHOUT codable children documented in this encounter Care Teams Dinkey Locomotive Engineer Relationship Specialty Start Date End Date Sal Fitzpatrick MD [address] [place] [address] PCP - General Family Practice 02/07/24 documented as of this encounter
--- OUTSIDE RECORDS SUMMARY | 2024-09-18 15:40 | XMS_ITS | Referral Summary ---
Author Organization [facility] al Address [address] [place] [address] Care Team Providers Care Sewing Room Supervisor Name Role Phone Sal Fitzpatrick MD Primary Care Provider + [phone] Dominguez East MD Unavailable [phone] Allergies No known active allergies Medications citalopram [...] calories 1 Body mass index 40.0-44.9, adult ([facility]) 04/28 Hyperlipidemia LDL goal <100 06/16/2021 Assessment [...] on file Legal Sex Female 12:16 AM RADIATION ONCOLOGY THERAPIST Gender Identity Not on file Sexual Orientation Not on file Last Filed Vital Signs Vital Sign Reading Time Taken Comments Blood Pressure 167/100 11/08/2023 9:25 AM CDT Pulse 102 11/08/2023 9:25 AM CDT Temperature - - Respiratory Rate 94 03/20/2020 10:16 AM CDT Oxygen Saturation 97% 11/08/2023 9:25 AM CDT Inhaled Oxygen Concentration - - Weight 104.8 kg (231 lb) 08/21/2023 11:03 AM RADIATION ONCOLOGY THERAPIST Height 160 cm (5' 3 ) 08/21/2023 11:03 AM RADIATION ONCOLOGY THERAPIST Body Mass Index 40.92 08/21/2023 11:03 AM RADIATION ONCOLOGY THERAPIST Plan of Treatment Not on file Insurance [employer] MEDICARE GOLD AETNA MEDICARE GOLD AETNA MEDICARE GOLD Care Teams Sewing Room Supervisor Relationship Specialty Start Date End Date Sal Fitzpatrick MD PCP - General 02/24/17 Dominguez East MD Referring Physician Orthopedic Surgery 09/11/18
--- OUTSIDE RECORDS SUMMARY | 2024-09-18 15:40 | XMS_ITS | Clinical Summary ---
Author Organization [facility] Address [facility] [place] [address] Care Team Providers Care Trust Vault Clerk Name Role Phone Unavailable Primary Care [...]
== END 2024-09-18 14:02 | disposition home or self-care (01) ==
LOC: ANHLAB 14:01
PROVIDERS: Visit Provider Internal Medicine Hematology & Oncology
DX: D75.1 Secondary polycythemia (principal)
CPT/HCPCS: 36415; 80047; 85025

== ENCOUNTER 2024-09-20 09:01 | Outpatient (CLI) | payer MEDICARE, SELFPAY ==
--- NOTE | ~2024-09-20 | MM_ITS ---
EXAMINATION: MM diagnostic reese LT w etta HISTORY: 74-year-old woman presents for diagnostic evaluation of a new 3 mm left breast mass lower central br east posterior third seen on screening mammography dated 07/23/2024. TECHNIQUE: Additional 3-D tomosynthesis images of the left breast were performed and synthetic 2-D im ages were generated. CAD analysis was submitted and interpreted. COMPARISON: Examination was compared with multiple prior studies, performed most recently on 07/23/2024 and dating back to 06/03/2019 BREAST PARENCHYMAL COMPOSITION: Not Dense. There are scattered areas of fibroglandular density. FINDINGS: MAMMOGRAPHIC FINDINGS: The 2.9 mm asymmetry persists with spot compression, as do multiple morphologically similar appearing asymmetries within the left breast. This focus demonstrates smooth margins, and in retrospect, was p resent in 2019 when it measured 2.82 mm (although given changes in positioning and technique, it does appear slightly more prominent on the 07/23/2024 examination, possibly given patient's recent weight l oss). Given the lack of significant growth since 2019, this asymmetry represents a benign finding, which wi ll be relayed to the patient. IMPRESSION: No mammographic or tomographic evidence to suggest the presence of malignancy. BI-RADS Category 2: Benign finding(s). Return to yearly screening is recommended. Reviewed, dictated and finalized at location A. P SETTER
== END 2024-09-20 09:02 | disposition home or self-care (01) ==
PROVIDERS: PCP Obstetrics & Gynecology; Visit Provider Obstetrics & Gynecology
DX: R92.8 Other abnormal and inconclusive findings on diagnostic imaging of breast (principal)
CPT/HCPCS: 77061; 77065; G0279

== ENCOUNTER 2025-04-04 12:50 | Outpatient (CLI) | payer MEDICARE, SELFPAY ==
--- NOTE | ~2025-04-04 | DEXA_ITS ---
Bone Density Report Name: JAZMIN HOYOS Age: 75 Sex: Female Ethnicity: White Date of : 1950 Indication: postmenopausal; screening for osteoporosis; height loss; Referring Provider: ROSARIO DEMPSEY Study: Bone densitometry was performed. Exam Date: April 04, 2025 Accession number: [id number] Bone Density: Region BMD T-score Z-score Classification AP Spine(L1-L4) 1.102 0.5 2.9 Normal Femoral Neck (Left) 0.624 -2.0 0.1 Osteopenia Total Hip (Left) 0.935 -0.1 1.7 Normal Femoral Neck (Right) 0.662 -1.7 0.4 Osteopenia Total Hip (Right) 0.852 -0.7 1.1 Normal Total Hip Mean 0.894 -0.4 1.4 Normal World Health Organization criteria for BMD impression classify patients as: Normal (T-score at or above -1.0), Osteopenia (T-score between -1.0 and -2.5), or Osteoporosis (T-score at or below -2.5). 10-year Fracture Risk(1): Major Osteoporotic Fracture 11% Hip Fracture 2.6% Reported Risk Factors: [place] (), Neck BMD=0.624, BMI=40.9 (1) FRAX(R) Version 3.08. Fracture probability calculated for an untreated patient. Fracture probability may be lower if the patient has received treatment. Clinical Information Provided by Patient: Has used the following medications: Vitamin D, Calcium Patient maximum height was 63 Menopause Age: 53 Drinks caffeinated beverages Onset of menses at age 13 Number of children 2 Impression: The patient has low bone mass, based on the Left Femoral Neck T-score. The patient has an estimated ten-year risk of hip fracture of 2.6% and an estimated ten-year risk of major fracture of 11%, based on the WHO FRAX algorithm. Discussion: BONE DENSITY IS LOW AT ONE OR MORE SKELETAL SITES. This patient's lowest T-score is low at one or more skeletal sites. It meets the World Health Organization's (WHO) criteria for ?low bone mass? (T-score between -1.0 and -2.5). The patient's 10-year risk of fracture as calculated by FRAX is less than the threshold where pharmacological therapy is recommended by the National Osteoporosis Foundation (NOF). However, all treatment decisions require clinical judgment and consideration of individual patient factors, including patient preferences, comorbidities, previous drug use, risk factors not captured in the FRAX model (e.g., frailty, falls, vitamin D deficiency, increased bone turnover, interval significant decline in bone density) and possible under or overestimation of fracture risk by FRAX. The patient should follow a healthful lifestyle (good nutrition with adequate calcium and vitamin D, and appropriate weight-bearing exercise). Follow-Up: Consider repeating this study in 2 to 3 years to reassess this patient's status, or sooner if there is some new clinical indication. Reported by: AILYN on 04/04/2025 1:35:00 PM. Reviewed, dictated and finalized at location A.
--- OUTSIDE RECORDS SUMMARY | 2025-04-04 12:54 | XMS_ITS | Clinical Summary ---
Author Organization [facility] Address [address] [place] [address] Care Team Providers Care Crepe Maker Name Role Phone Sal Fitzpatrick MD Primary Care Provider [phone] Dominguez East MD Unavailable [phone] Allergies No known active allergies Medications ezetimibe (ZETIA) 10 mg tablet Take 1 tablet (10 mg total) by mouth daily 2 Active losartan (COZAAR) 100 mg tablet TAKE 1 TABLET BY MOUTH EVERY DAY 90 tablet 2 3 Active Additional Information Patient not taking.Reported on 02/18/2025 rosuvastatin (CRESTOR) 10 mg tabletIndication s:Infrarenal abdominal aortic aneurysm (AAA) without rupture,Hyperlip idemia LDL goal <100 TAKE 1 TABLET BY MOUTH EVERY DAY 90 tablet 2 4 Active Additional Information Patient taking differently: 20 mgoral Daily, Reported on 02/18/2025 spironolactone (ALDACTONE) 25 mg tabletIndication s:Primary hypertension TAKE 1 TABLET (25 MG TOTAL) BY MOUTH DAILY. 90 tablet 3 4 Active dilTIAZem XR 120 mg 24 hr capsule TAKE 1 CAPSULE BY MOUTH EVERY DAY 90 capsule [address] (CYMBALTA) 60 mg capsule Take by mouth daily Active dapagliflozin propanediol (FARXIGA) 10 mg tablet 1 tablet (10 mg total) Active semaglutide (WEGOVY) 0.25 mg/0.5 mL auto-injector Inject 0.25 mg under the skin Active aspirin 81 mg enteric coated tabletIndication s:Infrarenal abdominal aortic aneurysm (AAA) without rupture Take 1 tablet (81 mg total) by mouth daily 5 02/19/20 26 Active Active Problems Problem Noted Date Diagnosed Date Infrarenal abdominal aortic aneurysm (AAA) witho ut rupture 11/25/2022 Assessment & Plan (11/15/2024 10:54 AM CDT): Aortic duplex currently measuring the abdominal aortic aneurysm 3.7 x 3.7 cm previously measuring 3.4 x 3.3 cm. Plan: Follow up in 1 year for routine surveillance with aortic duplex again discussed recommendations of intervention once the aneurysm becomes 5 cm - 5.5 cm or shows signs of growing rapidly. Assessment & Plan (11/10/2023 2:18 PM CDT): [...] (severe) obesity due to excess calories 1 Hyperlipidemia LDL goal <100 06/16/2021 Assessment & [...] of ankle 11/23/2012 Osteoarthritis of knee 01/06/2011 Resolved Problems Problem Noted Date Diagnosed Date Resolved Date Body mass index 40.0-44.9, adult ([facility]) 04/28/2022 02/18/2025 Encounters Date Type Department Care Team Description 02/18/2025 2:45 PM CDT Office Visit [facility] Medical Group Cardiology [address] [place] [address] Crow Polanco MD Infrarenal abdominal aortic aneurysm (AAA) without rupture (Primary Dx); Hyperlipidemia LDL goal <100; Primary hypertension; Ventricular premature beats; Morbid (severe) obesity due to excess calories ([facility]) 02/18/2025 Orders Only [facility] Medical [facility] Cardiology [address] [place] [phone] Provider, MD Yomaira from Last 3 Months Medical History Medical History Date Comments Hx [...] on file Legal Sex Female 12:16 AM OUTSOLE BEVELER Gender Identity Female 11/12/2024 7:03 PM CDT Sexual Orientation Straight 11/12/2024 7: 03 PM CDT Obstetrics History Last Filed Vital Signs Vital Sign Reading Time Taken Comments Blood Pressure 124/76 02/18/2025 3:02 PM CDT Pulse 70 02/18/2025 3:02 PM CDT Temperature - - Respiratory Rate 94 03/20/2020 10:16 AM CDT Oxygen Saturation 95% 02/18/2025 3:02 PM CDT Inhaled Oxygen Concentration - - Weight 97.1 kg (214 lb) 02/18/2025 3:02 PM CDT Height 160 cm (5' 3) 02/18/2025 3:02 PM CDT Body Mass Index 37.91 02/18/2025 3:02 PM CDT Plan of Treatment Health Maintenance Due Date Last Done Comments Colon Cancer Screening-Colonoscopy 1950 Depression Screening 1950 Fall Risk Assessment 1950 Hepatitis C Screening 1950 Osteoporosis Screening-Bone Density Scan 1950 DTaP/Tdap/Td Vaccine (1 - Tdap) 1961 Hepatitis B Screening 01/03/1968 Pneumococcal vaccine 65+ (1 of 1 - PCV) 01/03/2000 Zoster Vaccine (2 of 3) 11/18/2013 09/23/2013 Well Visit 65+ 2015 Influenza Vaccine (#1) 2025 Insurance [employer] MEDICARE GOLD [facility] MEDICARE [facility] AETNA MEDICARE GOLD Care Teams Crepe Maker Relationship Specialty Start Date End Date Sal Fitzpatrick MD PCP - General 02/24/17 Dominguez East MD Referring Physician Orthopedic Surgery 09/11/18
--- OUTSIDE RECORDS SUMMARY | 2025-04-04 12:54 | XMS_ITS | Clinical Summary ---
Author Organization [facility] Address [facility] [place] [address] Care Team Providers Care Cruise Guide Name Role Phone Unavailable Primary Care Provider [...] Td Vaccines ( 1 - Tdap) 1969 Pneumococcal Vaccine: 50+ Ye ars (1 of 1 - PCV) 01/03/2000 Zoster Vaccines (1 of 2) 01/03/2000 Dexa Scan (General) 2015 RSV Immunization or 60+ Years (1 - 1-dose 75+ series) 2025 COVID-19 Vaccine ( - 2023-2 5 season) 2025 Meningococcal B Vaccine Aged Out No l onger eligible based on patient's age to complete this topic Meningococcal Vaccine Aged Out No gaby markel eligible based on patient's age to complete this topic RSV Immunizations Under 20 Months Aged Out No longer eligible based on patient's age to complete this topic
--- OUTSIDE RECORDS SUMMARY | 2025-04-04 12:54 | XMS_ITS | Clinical Summary ---
Author Organization [facility] Address [address] [place] [address] Care Team Providers Care Voice And Data Technician Name Role Phone Sal Fitzpatrick MD Primary Care Provider [phone] Allergies No known active allergies Medications busPIRone [...] Active lancet-gluc test strip-needles Combo [place] [facility] [place]Non-Drug; Combo Route) route. Active dapagliflozin propanediol (Farxiga) 10 mg Tablet Take 10 mg by mouth daily. Active diltiaZEM (DILACOR XR) 120 mg Extended Release capsule Take 120 mg by mouth daily. 3 Active Active Problems No known active problems Encounters Date Type Department Care Team Description 04/01/2025 External Device Data [facility] ABSTRACTION Provider, Abstract 01/29/2025 External Device Data [facility] ABSTRACTION Provider, Abstract 01/29/2025 External Device Data [facility] ABSTRACTION Provider, Abstract 01/29/2025 External Device Data [facility] ABSTRACTION Provider, Abstract 01/28/2025 External Device Data [facility] ABSTRACTION Provider, Abstract 01/20/2025 1:15 PM CDT Office Visit [facility] Oncology and Hematology [facility] [address] [place] [address] Rafael Camp MD Erythrocytosis (Primary Dx) 01/07/2025 External Device Data [facility] ABSTRACTION Provider, Abstract [...] Sign Reading Time Taken Comments Blood Pressure 147/85 01/20/2025 1:13 PM CDT Pulse 84 01/20/2025 1:09 PM CDT Temperature 36.8 C (98.2 F) 01/20/2025 1:09 PM CDT Respiratory Rate 15 01/20/2025 1:09 PM CDT Oxygen Saturation 93% 01/20/2025 1:09 PM CDT Inhaled Oxygen Concentration - - Weight 95.6 kg (210 lb 12.8 oz) 01/20/2025 1:09 PM CDT Height 157.5 cm (5' 2) 02/14/2024 10:0 6 AM CDT Body Mass Index 38.56 02/14/2024 10:06 AM CDT Plan of Treatment Upcoming Encounters Date Type Department Care Team (Late st Contact Info) Description 05/27/2025 1:15 PM IT SOFTWARE DEVELOPER Office Visit [facility] Oncology and Hematology [facility] [address] [place] [address] Rafael Camp MD [address] [place] [address] Health Maintenance Due Date Last Done Comments DTAP/TDAP/TD VACCINES (1 - Tdap) 1969 COLORECTAL SCREENING 1995 Colorectal Cancer Screening 1995 FIT-DNA Q 3 years 1995 FIT/FOBT Q 1 year 1995 Flex Sig/CT Colonography Q 5 years 1995 PNEUMOCOCCAL VACCINE 50+ YEARS (1 of 1 - PCV) 01/03/20 00 ZOSTER VACCINE (1 of 2) 01/03/2000 OSTEOPOROSIS SCREENING 2015 RSV VACCINE (60+ or ) (1 - 1-dose 75+ series) 2025 INFLUENZA VACCINE (#1) [address] [facility] MCR Care Teams Voice And Data Technician Relationship Specialty Start Date End Date Sal Fitzpatrick MD [address] [place] [id number] PCP - General Family Practice 02/07/24
== END 2025-04-04 12:51 | disposition home or self-care (01) ==
LOC: ANHFOHIMG 12:52
PROVIDERS: PCP Family Medicine; Visit Provider Internal Medicine
DX: Z13.820 Encounter for screening for osteoporosis (principal); M85.852 Other specified disorders of bone density and structure, left thigh; M85.851 Other specified disorders of bone density and structure, right thigh
CPT/HCPCS: 77080

== ENCOUNTER 2025-06-23 11:09 | Outpatient (CLI) | payer MEDICARE, SELFPAY ==
--- NOTE | ~2025-06-23 | XR_ITS ---
XR lumbar spine 2-3V Indication: M54.5 - Low back pain Comparison: None Findings: Grade 1 anterolisthesis of L4 on L5. Moderate to severe loss of disc height throughout. Soft tissues unremarkable Impression: No acute abnormality. Reviewed, dictated and finalized at location P. AL SPECIALIST Impression: No acute abnormality.
--- NOTE | ~2025-06-23 | XR_ITS ---
XR thoracic spine 2V Indication: M54.5 - Low back pain Comparison: None Findings: Mild dextroconvex scoliosis. Moderate loss of vertebral height throughout. No fracture or subluxation. Severe loss of disc height throughout. Soft tissues unremarkable Impression: No acute abnormality. Reviewed, dictated and finalized at location P. 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
== END 2025-06-23 11:10 | disposition home or self-care (01) ==
LOC: MICIMG 11:11
PROVIDERS: PCP Family Medicine; Visit Provider Physician Assistant Medical
DX: M54.50 Low back pain, unspecified (principal); M54.6 Pain in thoracic spine
CPT/HCPCS: 72070; 72100